=== PATIENT | male | born 1945 | race Caucasian/White ===

== ENCOUNTER 2019-05-20 19:56 | Inpatient (IN) | payer MEDICARE ==
[~2019-05-20] VITALS: Ht 170.2 cm; Wt 71.2 kg
--- OUTSIDE RECORDS SUMMARY | 2019-05-20 20:00 | XMS REPORT ---
[facility] Address Unknown Phone Unavailable Care Team Providers Care Crisis Mental Health Therapist Name Role Phone Unavailable Unavailable Payers Payer Name Policy Type Policy Number Effective Date Expiration Date Problems This patient has no known problems. Allergies, Adverse Reactions, Alerts Allergy Name Allergy Type Status Severity Reaction(s) Onset Date Inactive Date Treating Clinician Comments sulfacetamide DA Active U 2019-05-13 00:00:00 Not Converted 192. See Text. DA Active U 2019-05-13 00:00:00 No Known Contrast Allergies DA Active U 2005-03-09 00:00:00 No Known Food Allergies DA Active U 2005-03-09 00:00:00 No Known Other Allergies DA Active U 2005-03-09 00:00:00 SULFA DRUGS DA Active U 2005-03-09 00:00:00 sulfacetamide DA Active U 2005-03-07 00:00:00 Not Converted 192. See Text. DA Active U 2005-03-07 00:00:00 Medications This patient has no known medications. Results Test Description Test Time Test Comments Text Results Atomic Results Result Comments CBC W/MANUAL DIFF 2019-05-19 22:45:00 WHITE BLOOD CELL (test code=WBC) 8.7 K/mm3 4.5-12.5 RED BLOOD CELL (test code=RBC) 3.49 mill/mm3 4.0-5.8 HEMOGLOBIN (test code=HGB) 10.9 gram/dL 13.0-17.5 HEMATOCRIT (test code=HCT) 32.5 % 42.0-52.0 MEAN CELL VOLUME (test code=MCV) 93.1 fL 80-98 MEAN CELL HGB (test code=MCH) 31.2 picogram 27.0-33.0 MEAN CELL HGB CONCETRATION (test code=MCHC) 33.5 gram/dL 33.0-36.0 RED CELL DISTRIBUTION WIDTH (test code=RDW) 15.0 % 11.6-16.2 RED CELL DISTRIBUTION WIDTH SD (test code=RDW-SD) 51.4 fL 37.0-51.0 PLATELET COUNT (test code=PLT) 337 K/mm3 150-450 MEAN PLATELET VOLUME (test code=MPV) 9.4 fL 6.7-11.0 IMMATURE GRANULOCYTE % (test code=IG%) 11.8 % 0.0-5.0 "The appearance of immature granulocytes (myelocytes,pro-myelocytes, meta-myelocytes) in the peripheral blood ofnon- individuals can indicate a response toinfection, inflammation, or other stimulus to the bonemarrow" NUCLEATED RBC % (test code=NRBC%) 0.3 % 0-0 NEUTROPHIL # (test code=NT#) 5.24 K/mm3 1.8-7.7 IMMATURE GRANULOCYTE # (test code=IG#) 1.02 x10 3/uL 0-0.03 LYMPHOCYTE # (test code=LY#) 1.37 K/mm3 1.0-5.0 MONOCYTE # (test code=MO#) 0.76 K/mm3 0-0.8 EOSINOPHIL # (test code=EO#) 0.20 K/mm3 0.0-0.5 BASOPHIL # (test code=BA#) 0.09 K/mm3 0.0-0.2 NUCLEATED RBC # (test code=NRBC#) 0.03 K/mm3 0.0-0.1 MANUAL DIFF REQUIRED (test code=MDIFF) YES STAIN ACCEPTABILITY (test code=STN ACCEPTABLE) STAIN ACCEPTABLE TOTAL CELLS COUNTED (test code=TCC) 115 #CELLS SEGMENTED NEUTROPHILS (test code=SEG) 62.6 % 39-69 BAND NEUTROPHIL (test code=BAND) 5.2 % 0-10 LYMPHOCYTE (test code=LYMPH) 10.4 % 25-55 REACTIVE LYMPH (test code=RELYMPH) 0 % MONOCYTE (test code=MON) 9.6 % 0-10 EOSINOPHIL (test code=EOS) 4.4 % 0.0-5.0 BASOPHIL (test code=BASO) 0 % 0-1.0 METAMYELOCYTE (test code=META) 0.9 % 0-0 MYELOCYTE (test code=MYELO) 2.6 % 0.0-0.0 PROMYELOCYTE (test code=PROM) 0 % 0-0 MORPHOLOGY COMMENT (test code=MOC) NORMAL PLATELET ESTIMATE (test code=PLTEST) ADEQUATE PLATELET MORPHOLOGY (test code=PLTMORPH) NORMAL IMMATURE FORMS (test code=IMMAT) 4.3 % 0-0 PATHOLOGISTS [id number] 22:45:00* Test Item Value Reference Range Comments PATHOLOGISTS FINDINGS (test code=PATH) PATH NOTES NORMAL WBC WITH MILD TOXIC GRANULATION Reviewed by Dr Jesús Santizo CBC W/MANUAL [id number] 06:23:00* Test Item Value Reference Range Comments WHITE BLOOD CELL (test code=WBC) 8.7 K/mm3 4.5-12.5 RED BLOOD CELL (test code=RBC) 3.49 mill/mm3 4.0-5.8 HEMOGLOBIN (test code=HGB) 10.9 gram/dL 13.0-17.5 HEMATOCRIT (test code=HCT) 32.5 % 42.0-52.0 MEAN CELL VOLUME (test code=MCV) 93.1 fL 80-98 MEAN CELL HGB (test code=MCH) 31.2 picogram 27.0-33.0 MEAN CELL HGB CONCETRATION (test code=MCHC) 33.5 gram/dL 33.0-36.0 RED CELL DISTRIBUTION WIDTH (test code=RDW) 15.0 % 11.6-16.2 RED CELL DISTRIBUTION WIDTH SD (test code=RDW-SD) 51.4 fL 37.0-51.0 PLATELET COUNT (test code=PLT) 337 K/mm3 150-450 MEAN PLATELET VOLUME (test code=MPV) 9.4 fL 6.7-11.0 IMMATURE GRANULOCYTE % (test code=IG%) 11.8 % 0.0-5.0 "The appearance of immature granulocytes (myelocytes,pro-myelocytes, meta-myelocytes) in the peripheral blood ofnon- individuals can indicate a response toinfection, inflammation, or other stimulus to the bonemarrow" NUCLEATED RBC % (test code=NRBC%) 0.3 % 0-0 NEUTROPHIL # (test code=NT#) 5.24 K/mm3 1.8-7.7 IMMATURE GRANULOCYTE # (test code=IG#) 1.02 x10 3/uL 0-0.03 LYMPHOCYTE # (test code=LY#) 1.37 K/mm3 1.0-5.0 MONOCYTE # (test code=MO#) 0.76 K/mm3 0-0.8 EOSINOPHIL # (test code=EO#) 0.20 K/mm3 0.0-0.5 BASOPHIL # (test code=BA#) 0.09 K/mm3 0.0-0.2 NUCLEATED RBC # (test code=NRBC#) 0.03 K/mm3 0.0-0.1 MANUAL DIFF REQUIRED (test code=MDIFF) YES STAIN ACCEPTABILITY (test code=STN ACCEPTABLE) STAIN ACCEPTABLE TOTAL CELLS COUNTED (test code=TCC) 115 #CELLS SEGMENTED NEUTROPHILS (test code=SEG) 62.6 % 39-69 BAND NEUTROPHIL (test code=BAND) 5.2 % 0-10 LYMPHOCYTE (test code=LYMPH) 10.4 % 25-55 REACTIVE LYMPH (test code=RELYMPH) 0 % MONOCYTE (test code=MON) 9.6 % 0-10 EOSINOPHIL (test code=EOS) 4.4 % 0.0-5.0 BASOPHIL (test code=BASO) 0 % 0-1.0 METAMYELOCYTE (test code=META) 0.9 % 0-0 MYELOCYTE (test code=MYELO) 2.6 % 0.0-0.0 PROMYELOCYTE (test code=PROM) 0 % 0-0 MORPHOLOGY COMMENT (test code=MOC) NORMAL PLATELET ESTIMATE (test code=PLTEST) ADEQUATE PLATELET MORPHOLOGY (test code=PLTMORPH) NORMAL IMMATURE FORMS (test code=IMMAT) 4.3 % 0-0 BASIC METABOLIC [id number] 06:16:00* Test Item Value Reference Range Comments SODIUM (test code=NA) 135 mmol/L 136-145 POTASSIUM (test code=K) 3.5 mmol/L 3.5-5.1 CHLORIDE (test code=CL) 104.0 mmol/L 98-107 CARBON DIOXIDE (test code=CO2) 19.0 mmol/L 21-32 ANION GAP (test code=GAP) 15.5 10-20 GLUCOSE (test code=GLU) 84 mg/dL 74-106 BLOOD UREA NITROGEN (test code=BUN) 12 mg/dL 7-18 GLOMERULAR FILTRATION RATE (test code=GFR) > 60 mL/min >=60 Estimated GFR by using Modified MDRD formula.Chronic kidney disease is defined as either kidney damageor GFR <60 mL/min/1.73 m2 for >3 months. CREATININE (test code=CREAT) 0.50 mg/dL 0.7-1.3 BUN/CREATININE RATIO (test code=BUN/CREA) 24.0 10-20 CALCIUM (test code=CA) 8.1 mg/dL 8.5-10.1 HEPATIC FUNCTION [id number] 06:16:00* Test Item Value Reference Range Comments TOTAL PROTEIN (test code=PROT) 6.0 gram/dL 6.4-8.2 ALBUMIN (test code=ALB) 2.0 g/dL 3.4-5.0 GLOBULIN (test code=GLOB) 4.0 gram/dL 2.7-4.2 ALBUMIN/GLOBULIN RATIO (test code=A/G) 0.5 0.75-1.50 BILIRUBIN TOTAL (test code=BILT) 0.80 mg/dL 0.0-1.0 BILIRUBIN DIRECT (test code=BILD) 0.37 mg/dL 0.0-0.20 SGOT/AST (test code=AST) 43 IUnit/L 15-37 SGPT/ALT (test code=ALT) 18 IUnit/L 12-78 ALKALINE PHOSPHATASE TOTAL (test code=ALKP) 223 IUnit/L 45-117 Note change in reference range due to change in reagent. [id number] 06:16:00* Test Item Value Reference Range Comments PHOSPHORUS (test code=PHOS) 2.1 mg/dL 2.5-4.9 [id number] 06:16:00* Test Item Value Reference Range Comments MAGNESIUM (test code=MAG) 1.9 mg/dL 1.8-2.4 CALCIUM [id number] 06:16:00* Test Item Value Reference Range Comments CALCIUM IONIZED (test code=ASHLEE) 1.18 mmol/L 1.12-1.32 B-TYPE NATRIURETIC [id number] 06:11:00* Test Item Value Reference Range Comments B-TYPE NATRIURETIC PEPTIDE (test code=BNP) 172.25 pgram/mL 0-100 BASIC METABOLIC [id number] 06:05:00* Test Item Value Reference Range Comments SODIUM (test code=NA) 135 mmol/L 136-145 POTASSIUM (test code=K) 3.5 mmol/L 3.5-5.1 CHLORIDE (test code=CL) 104.0 mmol/L 98-107 CARBON DIOXIDE (test code=CO2) mmol/L 21-32 ANION GAP (test code=GAP) 10-20 GLUCOSE (test code=GLU) mg/dL 74-106 BLOOD UREA NITROGEN (test code=BUN) mg/dL 7-18 GLOMERULAR FILTRATION RATE (test code=GFR) mL/min >=60 CREATININE (test code=CREAT) mg/dL 0.7-1.3 BUN/CREATININE RATIO (test code=BUN/CREA) 10-20 CALCIUM (test code=CA) mg/dL 8.5-10.1 HEPATIC FUNCTION [id number] 06:05:00* Test Item Value Reference Range Comments TOTAL PROTEIN (test code=PROT) gram/dL 6.4-8.2 ALBUMIN (test code=ALB) g/dL 3.4-5.0 GLOBULIN (test code=GLOB) gram/dL 2.7-4.2 ALBUMIN/GLOBULIN RATIO (test code=A/G) 0.75-1.50 BILIRUBIN TOTAL (test code=BILT) mg/dL 0.0-1.0 BILIRUBIN DIRECT (test code=BILD) mg/dL 0.0-0.20 SGOT/AST (test code=AST) IUnit/L 15-37 SGPT/ALT (test code=ALT) IUnit/L 12-78 ALKALINE PHOSPHATASE TOTAL (test code=ALKP) IUnit/L 45-117 [id number] 06:05:00* Test Item Value Reference Range Comments PHOSPHORUS (test code=PHOS) mg/dL 2.5-4.9 [id number] 06:05:00* Test Item Value Reference Range Comments MAGNESIUM (test code=MAG) mg/dL 1.8-2.4 CALCIUM [id number] 06:05:00* Test Item Value Reference Range Comments CALCIUM IONIZED (test code=ASHLEE) 1.18 mmol/L 1.12-1.32 BASIC METABOLIC [id number] 05:58:00* Test Item Value Reference Range Comments SODIUM (test code=NA) mmol/L 136-145 POTASSIUM (test code=K) mmol/L 3.5-5.1 CHLORIDE (test code=CL) mmol/L 98-107 CARBON DIOXIDE (test code=CO2) mmol/L 21-32 ANION GAP (test code=GAP) 10-20 GLUCOSE (test code=GLU) mg/dL 74-106 BLOOD UREA NITROGEN (test code=BUN) mg/dL 7-18 GLOMERULAR FILTRATION RATE (test code=GFR) mL/min >=60 CREATININE (test code=CREAT) mg/dL 0.7-1.3 BUN/CREATININE RATIO (test code=BUN/CREA) 10-20 CALCIUM (test code=CA) mg/dL 8.5-10.1 HEPATIC FUNCTION [id number] 05:58:00* Test Item Value Reference Range Comments TOTAL PROTEIN (test code=PROT) gram/dL 6.4-8.2 ALBUMIN (test code=ALB) g/dL 3.4-5.0 GLOBULIN (test code=GLOB) gram/dL 2.7-4.2 ALBUMIN/GLOBULIN RATIO (test code=A/G) 0.75-1.50 BILIRUBIN TOTAL (test code=BILT) mg/dL 0.0-1.0 BILIRUBIN DIRECT (test code=BILD) mg/dL 0.0-0.20 SGOT/AST (test code=AST) IUnit/L 15-37 SGPT/ALT (test code=ALT) IUnit/L 12-78 ALKALINE PHOSPHATASE TOTAL (test code=ALKP) IUnit/L 45-117 [id number] 05:58:00* Test Item Value Reference Range Comments PHOSPHORUS (test code=PHOS) mg/dL 2.5-4.9 [id number] 05:58:00* Test Item Value Reference Range Comments MAGNESIUM (test code=MAG) mg/dL 1.8-2.4 CALCIUM [id number] 05:58:00* Test Item Value Reference Range Comments CALCIUM IONIZED (test code=ASHLEE) 1.18 mmol/L 1.12-1.32 CBC W/MANUAL [id number] 05:41:00* Test Item Value Reference Range Comments WHITE BLOOD CELL (test code=WBC) 8.7 K/mm3 4.5-12.5 RED BLOOD CELL (test code=RBC) 3.49 mill/mm3 4.0-5.8 HEMOGLOBIN (test code=HGB) 10.9 gram/dL 13.0-17.5 HEMATOCRIT (test code=HCT) 32.5 % 42.0-52.0 MEAN CELL VOLUME (test code=MCV) 93.1 fL 80-98 MEAN CELL HGB (test code=MCH) 31.2 picogram 27.0-33.0 MEAN CELL HGB CONCETRATION (test code=MCHC) 33.5 gram/dL 33.0-36.0 RED CELL DISTRIBUTION WIDTH (test code=RDW) 15.0 % 11.6-16.2 RED CELL DISTRIBUTION WIDTH SD (test code=RDW-SD) 51.4 fL 37.0-51.0 PLATELET COUNT (test code=PLT) 337 K/mm3 150-450 MEAN PLATELET VOLUME (test code=MPV) 9.4 fL 6.7-11.0 IMMATURE GRANULOCYTE % (test code=IG%) 11.8 % 0.0-5.0 "The appearance of immature granulocytes (myelocytes,pro-myelocytes, meta-myelocytes) in the peripheral blood ofnon- individuals can indicate a response toinfection, inflammation, or other stimulus to the bonemarrow" NUCLEATED RBC % (test code=NRBC%) 0.3 % 0-0 NEUTROPHIL # (test code=NT#) 5.24 K/mm3 1.8-7.7 IMMATURE GRANULOCYTE # (test code=IG#) 1.02 x10 3/uL 0-0.03 LYMPHOCYTE # (test code=LY#) 1.37 K/mm3 1.0-5.0 MONOCYTE # (test code=MO#) 0.76 K/mm3 0-0.8 EOSINOPHIL # (test code=EO#) 0.20 K/mm3 0.0-0.5 BASOPHIL # (test code=BA#) 0.09 K/mm3 0.0-0.2 NUCLEATED RBC # (test code=NRBC#) 0.03 K/mm3 0.0-0.1 MANUAL DIFF REQUIRED (test code=MDIFF) YES STAIN ACCEPTABILITY (test code=STN ACCEPTABLE) TOTAL CELLS COUNTED (test code=TCC) #CELLS SEGMENTED NEUTROPHILS (test code=SEG) % 39-69 LYMPHOCYTE (test code=LYMPH) % 25-55 MONOCYTE (test code=MON) % 0-10 EOSINOPHIL (test code=EOS) % 0.0-5.0 CABOT RINGS (test code=CAB) MORPHOLOGY COMMENT (test code=MOC) PLATELET ESTIMATE (test code=PLTEST) PLATELET MORPHOLOGY (test code=PLTMORPH) CBC W/MANUAL [id number] 05:41:00* Test Item Value Reference Range Comments WHITE BLOOD CELL (test code=WBC) 8.7 K/mm3 4.5-12.5 RED BLOOD CELL (test code=RBC) 3.49 mill/mm3 4.0-5.8 HEMOGLOBIN (test code=HGB) 10.9 gram/dL 13.0-17.5 HEMATOCRIT (test code=HCT) 32.5 % 42.0-52.0 MEAN CELL VOLUME (test code=MCV) 93.1 fL 80-98 MEAN CELL HGB (test code=MCH) 31.2 picogram 27.0-33.0 MEAN CELL HGB CONCETRATION (test code=MCHC) 33.5 gram/dL 33.0-36.0 RED CELL DISTRIBUTION WIDTH (test code=RDW) 15.0 % 11.6-16.2 RED CELL DISTRIBUTION WIDTH SD (test code=RDW-SD) 51.4 fL 37.0-51.0 PLATELET COUNT (test code=PLT) 337 K/mm3 150-450 MEAN PLATELET VOLUME (test code=MPV) 9.4 fL 6.7-11.0 IMMATURE GRANULOCYTE % (test code=IG%) 11.8 % 0.0-5.0 "The appearance of immature granulocytes (myelocytes,pro-myelocytes, meta-myelocytes) in the peripheral blood ofnon- individuals can indicate a response toinfection, inflammation, or other stimulus to the bonemarrow" NUCLEATED RBC % (test code=NRBC%) 0.3 % 0-0 NEUTROPHIL # (test code=NT#) 5.24 K/mm3 1.8-7.7 IMMATURE GRANULOCYTE # (test code=IG#) 1.02 x10 3/uL 0-0.03 LYMPHOCYTE # (test code=LY#) 1.37 K/mm3 1.0-5.0 MONOCYTE # (test code=MO#) 0.76 K/mm3 0-0.8 EOSINOPHIL # (test code=EO#) 0.20 K/mm3 0.0-0.5 BASOPHIL # (test code=BA#) 0.09 K/mm3 0.0-0.2 NUCLEATED RBC # (test code=NRBC#) 0.03 K/mm3 0.0-0.1 MANUAL DIFF REQUIRED (test code=MDIFF) YES STAIN ACCEPTABILITY (test code=STN ACCEPTABLE) TOTAL CELLS COUNTED (test code=TCC) #CELLS SEGMENTED NEUTROPHILS (test code=SEG) % 39-69 LYMPHOCYTE (test code=LYMPH) % 25-55 MONOCYTE (test code=MON) % 0-10 EOSINOPHIL (test code=EOS) % 0.0-5.0 CABOT RINGS (test code=CAB) MORPHOLOGY COMMENT (test code=MOC) PLATELET ESTIMATE (test code=PLTEST) PLATELET MORPHOLOGY (test code=PLTMORPH) CBC W/MANUAL [id number] 05:41:00* Test Item Value Reference Range Comments WHITE BLOOD CELL (test code=WBC) 8.7 K/mm3 4.5-12.5 RED BLOOD CELL (test code=RBC) 3.49 mill/mm3 4.0-5.8 HEMOGLOBIN (test code=HGB) 10.9 gram/dL 13.0-17.5 HEMATOCRIT (test code=HCT) 32.5 % 42.0-52.0 MEAN CELL VOLUME (test code=MCV) 93.1 fL 80-98 MEAN CELL HGB (test code=MCH) 31.2 picogram 27.0-33.0 MEAN CELL HGB CONCETRATION (test code=MCHC) 33.5 gram/dL 33.0-36.0 RED CELL DISTRIBUTION WIDTH (test code=RDW) 15.0 % 11.6-16.2 RED CELL DISTRIBUTION WIDTH SD (test code=RDW-SD) 51.4 fL 37.0-51.0 PLATELET COUNT (test code=PLT) 337 K/mm3 150-450 MEAN PLATELET VOLUME (test code=MPV) 9.4 fL 6.7-11.0 IMMATURE GRANULOCYTE % (test code=IG%) 11.8 % 0.0-5.0 "The appearance of immature granulocytes (myelocytes,pro-myelocytes, meta-myelocytes) in the peripheral blood ofnon- individuals can indicate a response toinfection, inflammation, or other stimulus to the bonemarrow" NUCLEATED RBC % (test code=NRBC%) 0.3 % 0-0 NEUTROPHIL # (test code=NT#) 5.24 K/mm3 1.8-7.7 IMMATURE GRANULOCYTE # (test code=IG#) 1.02 x10 3/uL 0-0.03 LYMPHOCYTE # (test code=LY#) 1.37 K/mm3 1.0-5.0 MONOCYTE # (test code=MO#) 0.76 K/mm3 0-0.8 EOSINOPHIL # (test code=EO#) 0.20 K/mm3 0.0-0.5 BASOPHIL # (test code=BA#) 0.09 K/mm3 0.0-0.2 NUCLEATED RBC # (test code=NRBC#) 0.03 K/mm3 0.0-0.1 MANUAL DIFF REQUIRED (test code=MDIFF) YES STAIN ACCEPTABILITY (test code=STN ACCEPTABLE) TOTAL CELLS COUNTED (test code=TCC) #CELLS SEGMENTED NEUTROPHILS (test code=SEG) % 39-69 LYMPHOCYTE (test code=LYMPH) % 25-55 MONOCYTE (test code=MON) % 0-10 EOSINOPHIL (test code=EOS) % 0.0-5.0 MORPHOLOGY COMMENT (test code=MOC) PLATELET ESTIMATE (test code=PLTEST) PLATELET MORPHOLOGY (test code=PLTMORPH) CBC W/MANUAL [id number] 05:41:00* Test Item Value Reference Range Comments WHITE BLOOD CELL (test code=WBC) 8.7 K/mm3 4.5-12.5 RED BLOOD CELL (test code=RBC) 3.49 mill/mm3 4.0-5.8 HEMOGLOBIN (test code=HGB) 10.9 gram/dL 13.0-17.5 HEMATOCRIT (test code=HCT) 32.5 % 42.0-52.0 MEAN CELL VOLUME (test code=MCV) 93.1 fL 80-98 MEAN CELL HGB (test code=MCH) 31.2 picogram 27.0-33.0 MEAN CELL HGB CONCETRATION (test code=MCHC) 33.5 gram/dL 33.0-36.0 RED CELL DISTRIBUTION WIDTH (test code=RDW) 15.0 % 11.6-16.2 RED CELL DISTRIBUTION WIDTH SD (test code=RDW-SD) 51.4 fL 37.0-51.0 PLATELET COUNT (test code=PLT) 337 K/mm3 150-450 MEAN PLATELET VOLUME (test code=MPV) 9.4 fL 6.7-11.0 IMMATURE GRANULOCYTE % (test code=IG%) 11.8 % 0.0-5.0 "The appearance of immature granulocytes (myelocytes,pro-myelocytes, meta-myelocytes) in the peripheral blood ofnon- individuals can indicate a response toinfection, inflammation, or other stimulus to the bonemarrow" NUCLEATED RBC % (test code=NRBC%) 0.3 % 0-0 NEUTROPHIL # (test code=NT#) 5.24 K/mm3 1.8-7.7 IMMATURE GRANULOCYTE # (test code=IG#) 1.02 x10 3/uL 0-0.03 LYMPHOCYTE # (test code=LY#) 1.37 K/mm3 1.0-5.0 MONOCYTE # (test code=MO#) 0.76 K/mm3 0-0.8 EOSINOPHIL # (test code=EO#) 0.20 K/mm3 0.0-0.5 BASOPHIL # (test code=BA#) 0.09 K/mm3 0.0-0.2 NUCLEATED RBC # (test code=NRBC#) 0.03 K/mm3 0.0-0.1 MANUAL DIFF REQUIRED (test code=MDIFF) YES STAIN ACCEPTABILITY (test code=STN ACCEPTABLE) TOTAL CELLS COUNTED (test code=TCC) #CELLS SEGMENTED NEUTROPHILS (test code=SEG) % 39-69 LYMPHOCYTE (test code=LYMPH) % 25-55 MONOCYTE (test code=MON) % 0-10 MORPHOLOGY COMMENT (test code=MOC) PLATELET ESTIMATE (test code=PLTEST) PLATELET MORPHOLOGY (test code=PLTMORPH) CBC W/MANUAL [id number] 05:41:00* Test Item Value Reference Range Comments WHITE BLOOD CELL (test code=WBC) 8.7 K/mm3 4.5-12.5 RED BLOOD CELL (test code=RBC) 3.49 mill/mm3 4.0-5.8 HEMOGLOBIN (test code=HGB) 10.9 gram/dL 13.0-17.5 HEMATOCRIT (test code=HCT) 32.5 % 42.0-52.0 MEAN CELL VOLUME (test code=MCV) 93.1 fL 80-98 MEAN CELL HGB (test code=MCH) 31.2 picogram 27.0-33.0 MEAN CELL HGB CONCETRATION (test code=MCHC) 33.5 gram/dL 33.0-36.0 RED CELL DISTRIBUTION WIDTH (test code=RDW) 15.0 % 11.6-16.2 RED CELL DISTRIBUTION WIDTH SD (test code=RDW-SD) 51.4 fL 37.0-51.0 PLATELET COUNT (test code=PLT) 337 K/mm3 150-450 MEAN PLATELET VOLUME (test code=MPV) 9.4 fL 6.7-11.0 IMMATURE GRANULOCYTE % (test code=IG%) 11.8 % 0.0-5.0 "The appearance of immature granulocytes (myelocytes,pro-myelocytes, meta-myelocytes) in the peripheral blood ofnon- individuals can indicate a response toinfection, inflammation, or other stimulus to the bonemarrow" NUCLEATED RBC % (test code=NRBC%) 0.3 % 0-0 NEUTROPHIL # (test code=NT#) 5.24 K/mm3 1.8-7.7 IMMATURE GRANULOCYTE # (test code=IG#) 1.02 x10 3/uL 0-0.03 LYMPHOCYTE # (test code=LY#) 1.37 K/mm3 1.0-5.0 MONOCYTE # (test code=MO#) 0.76 K/mm3 0-0.8 EOSINOPHIL # (test code=EO#) 0.20 K/mm3 0.0-0.5 BASOPHIL # (test code=BA#) 0.09 K/mm3 0.0-0.2 NUCLEATED RBC # (test code=NRBC#) 0.03 K/mm3 0.0-0.1 MANUAL DIFF REQUIRED (test code=MDIFF) YES STAIN ACCEPTABILITY (test code=STN ACCEPTABLE) TOTAL CELLS COUNTED (test code=TCC) #CELLS SEGMENTED NEUTROPHILS (test code=SEG) % 39-69 LYMPHOCYTE (test code=LYMPH) % 25-55 MONOCYTE (test code=MON) % 0-10 EOSINOPHIL (test code=EOS) % 0.0-5.0 CABOT RINGS (test code=CAB) MORPHOLOGY COMMENT (test code=MOC) PLATELET ESTIMATE (test code=PLTEST) PLATELET MORPHOLOGY (test code=PLTMORPH) - XR ABDOMEN AP 1 [id number] 19:33:00 FAX: Jamir Barnhart Stetson: B St: ADM FAX: Jian Harris MD [phone] Name: BOO MERRITT [facility] : 1945 Age/S: 73/M [address] [facility] Unit #: [id number] Loc: [address] [address] Phys: Jamir Colvin MD Acct: [id number] Dis Date: Status: ADM IN PHONE #: [phone] Exam Date: 05/18/2019 1855 FAX #: [phone] Reason: abdominal pain , constipation , recent divertic EXAMS: CPT CODE: [id number] XR ABDOMEN AP 1 V [id number] HISTORY: abdominal pain , constipation , recent diverticulitis TECHNIQUE: AP abdomen x-ray COMPARISON: CT of the abdomen and pelvis May 12, 2019 FINDINGS: Nonobstructive bowel gas pattern. No significant stool burden. No intra-abdominal mass effect. No abnormal calcifications are observed. Visualized osseous structures are intact. Visualized thorax is within normal limits. IMPRESSION: No radiographic evidence of acute intra-abdominal process. Location: [facility] at 1933 Reported and signed by: Sean Islsa MD CC: Jamir Colvin MD; Jian Rodríguez Technologist: CLAUS RICHARDSON, RT(R); ... Trnscrd Date/Time/By: 05/18/2019 (1932) : By: [email or web address] Orig Print D/T: S: 05/18/2019 (1936) PAGE 1 Signed Report CBC W/MANUAL [id number] 05:25:00* Test Item Value Reference Range Comments WHITE BLOOD CELL (test code=WBC) 8.6 K/mm3 4.5-12.5 RED BLOOD CELL (test code=RBC) 3.85 mill/mm3 4.0-5.8 HEMOGLOBIN (test code=HGB) 12.0 gram/dL 13.0-17.5 HEMATOCRIT (test code=HCT) 35.7 % 42.0-52.0 MEAN CELL VOLUME (test code=MCV) 92.7 fL 80-98 MEAN CELL HGB (test code=MCH) 31.2 picogram 27.0-33.0 MEAN CELL HGB CONCETRATION (test code=MCHC) 33.6 gram/dL 33.0-36.0 RED CELL DISTRIBUTION WIDTH (test code=RDW) 14.4 % 11.6-16.2 RED CELL DISTRIBUTION WIDTH SD (test code=RDW-SD) 49.1 fL 37.0-51.0 PLATELET COUNT (test code=PLT) 332 K/mm3 150-450 RESULT VERIFIED BY REPEAT ANALYSIS MEAN PLATELET VOLUME (test code=MPV) 8.9 fL 6.7-11.0 IMMATURE GRANULOCYTE % (test code=IG%) 9.3 % 0.0-5.0 "The appearance of immature granulocytes (myelocytes,pro-myelocytes, meta-myelocytes) in the peripheral blood ofnon- individuals can indicate a response toinfection, inflammation, or other stimulus to the bonemarrow" NUCLEATED RBC % (test code=NRBC%) 0.0 % 0-0 NEUTROPHIL # (test code=NT#) 5.61 K/mm3 1.8-7.7 IMMATURE GRANULOCYTE # (test code=IG#) 0.80 x10 3/uL 0-0.03 LYMPHOCYTE # (test code=LY#) 1.07 K/mm3 1.0-5.0 MONOCYTE # (test code=MO#) 0.69 K/mm3 0-0.8 EOSINOPHIL # (test code=EO#) 0.37 K/mm3 0.0-0.5 BASOPHIL # (test code=BA#) 0.03 K/mm3 0.0-0.2 NUCLEATED RBC # (test code=NRBC#) 0.00 K/mm3 0.0-0.1 MANUAL DIFF REQUIRED (test code=MDIFF) YES STAIN ACCEPTABILITY (test code=STN ACCEPTABLE) STAIN ACCEPTABLE TOTAL CELLS COUNTED (test code=TCC) 115 #CELLS SEGMENTED NEUTROPHILS (test code=SEG) 72.2 % 39-69 BAND NEUTROPHIL (test code=BAND) 0 % 0-10 LYMPHOCYTE (test code=LYMPH) 10.4 % 25-55 REACTIVE LYMPH (test code=RELYMPH) 0 % MONOCYTE (test code=MON) 7.8 % 0-10 EOSINOPHIL (test code=EOS) 7.0 % 0.0-5.0 BASOPHIL (test code=BASO) 0 % 0-1.0 METAMYELOCYTE (test code=META) 0.9 % 0-0 MYELOCYTE (test code=MYELO) 0 % 0.0-0.0 PROMYELOCYTE (test code=PROM) 0 % 0-0 PLASMA CELL (test code=ALISSA) 1.7 0.0-0.0 POLYCHROMASIA (test code=POLC) 1+ ANISOCYTOSIS (test code=ANISO) 1+ PLATELET ESTIMATE (test code=PLTEST) ADEQUATE PLATELET MORPHOLOGY (test code=PLTMORPH) NORMAL IMMATURE FORMS (test code=IMMAT) 0 % 0-0 BASIC METABOLIC [id number] 04:43:00* Test Item Value Reference Range Comments SODIUM (test code=NA) 135 mmol/L 136-145 POTASSIUM (test code=K) 3.3 mmol/L 3.5-5.1 CHLORIDE (test code=CL) 102.0 mmol/L 98-107 CARBON DIOXIDE (test code=CO2) 22.0 mmol/L 21-32 ANION GAP (test code=GAP) 14.3 10-20 GLUCOSE (test code=GLU) 81 mg/dL 74-106 BLOOD UREA NITROGEN (test code=BUN) 14 mg/dL 7-18 GLOMERULAR FILTRATION RATE (test code=GFR) > 60 mL/min >=60 Estimated GFR by using Modified MDRD formula.Chronic kidney disease is defined as either kidney damageor GFR <60 mL/min/1.73 m2 for >3 months. CREATININE (test code=CREAT) 0.60 mg/dL 0.7-1.3 BUN/CREATININE RATIO (test code=BUN/CREA) 23.3 10-20 CALCIUM (test code=CA) 8.3 mg/dL 8.5-10.1 HEPATIC FUNCTION [id number] 04:43:00* Test Item Value Reference Range Comments TOTAL PROTEIN (test code=PROT) 6.4 gram/dL 6.4-8.2 ALBUMIN (test code=ALB) 2.1 g/dL 3.4-5.0 GLOBULIN (test code=GLOB) 4.3 gram/dL 2.7-4.2 ALBUMIN/GLOBULIN RATIO (test code=A/G) 0.5 0.75-1.50 BILIRUBIN TOTAL (test code=BILT) 1.10 mg/dL 0.0-1.0 BILIRUBIN DIRECT (test code=BILD) 0.80 mg/dL 0.0-0.20 SGOT/AST (test code=AST) 43 IUnit/L 15-37 SGPT/ALT (test code=ALT) 19 IUnit/L 12-78 ALKALINE PHOSPHATASE TOTAL (test code=ALKP) 180 IUnit/L 45-117 Note change in reference range due to change in reagent. [id number] 04:43:00* Test Item Value Reference Range Comments PHOSPHORUS (test code=PHOS) 1.7 mg/dL 2.5-4.9 [id number] 04:43:00* Test Item Value Reference Range Comments MAGNESIUM (test code=MAG) 1.8 mg/dL 1.8-2.4 BASIC METABOLIC [id number] 04:36:00* Test Item Value Reference Range Comments SODIUM (test code=NA) 135 mmol/L 136-145 POTASSIUM (test code=K) 3.3 mmol/L 3.5-5.1 CHLORIDE (test code=CL) 102.0 mmol/L 98-107 CARBON DIOXIDE (test code=CO2) mmol/L 21-32 ANION GAP (test code=GAP) 10-20 GLUCOSE (test code=GLU) mg/dL 74-106 BLOOD UREA NITROGEN (test code=BUN) mg/dL 7-18 GLOMERULAR FILTRATION RATE (test code=GFR) mL/min >=60 CREATININE (test code=CREAT) mg/dL 0.7-1.3 BUN/CREATININE RATIO (test code=BUN/CREA) 10-20 CALCIUM (test code=CA) mg/dL 8.5-10.1 HEPATIC FUNCTION [id number] 04:36:00* Test Item Value Reference Range Comments TOTAL PROTEIN (test code=PROT) gram/dL 6.4-8.2 ALBUMIN (test code=ALB) g/dL 3.4-5.0 GLOBULIN (test code=GLOB) gram/dL 2.7-4.2 ALBUMIN/GLOBULIN RATIO (test code=A/G) 0.75-1.50 BILIRUBIN TOTAL (test code=BILT) mg/dL 0.0-1.0 BILIRUBIN DIRECT (test code=BILD) mg/dL 0.0-0.20 SGOT/AST (test code=AST) IUnit/L 15-37 SGPT/ALT (test code=ALT) IUnit/L 12-78 ALKALINE PHOSPHATASE TOTAL (test code=ALKP) IUnit/L 45-117 [id number] 04:36:00* Test Item Value Reference Range Comments PHOSPHORUS (test code=PHOS) mg/dL 2.5-4.9 [id number] 04:36:00* Test Item Value Reference Range Comments MAGNESIUM (test code=MAG) mg/dL 1.8-2.4 CBC W/MANUAL [id number] 04:27:00* Test Item Value Reference Range Comments WHITE BLOOD CELL (test code=WBC) 8.6 K/mm3 4.5-12.5 RED BLOOD CELL (test code=RBC) 3.85 mill/mm3 4.0-5.8 HEMOGLOBIN (test code=HGB) 12.0 gram/dL 13.0-17.5 HEMATOCRIT (test code=HCT) 35.7 % 42.0-52.0 MEAN CELL VOLUME (test code=MCV) 92.7 fL 80-98 MEAN CELL HGB (test code=MCH) 31.2 picogram 27.0-33.0 MEAN CELL HGB CONCETRATION (test code=MCHC) 33.6 gram/dL 33.0-36.0 RED CELL DISTRIBUTION WIDTH (test code=RDW) 14.4 % 11.6-16.2 RED CELL DISTRIBUTION WIDTH SD (test code=RDW-SD) 49.1 fL 37.0-51.0 PLATELET COUNT (test code=PLT) 332 K/mm3 150-450 RESULT VERIFIED BY REPEAT ANALYSIS MEAN PLATELET VOLUME (test code=MPV) 8.9 fL 6.7-11.0 IMMATURE GRANULOCYTE % (test code=IG%) 9.3 % 0.0-5.0 "The appearance of immature granulocytes (myelocytes,pro-myelocytes, meta-myelocytes) in the peripheral blood ofnon- individuals can indicate a response toinfection, inflammation, or other stimulus to the bonemarrow" NUCLEATED RBC % (test code=NRBC%) 0.0 % 0-0 NEUTROPHIL # (test code=NT#) 5.61 K/mm3 1.8-7.7 IMMATURE GRANULOCYTE # (test code=IG#) 0.80 x10 3/uL 0-0.03 LYMPHOCYTE # (test code=LY#) 1.07 K/mm3 1.0-5.0 MONOCYTE # (test code=MO#) 0.69 K/mm3 0-0.8 EOSINOPHIL # (test code=EO#) 0.37 K/mm3 0.0-0.5 BASOPHIL # (test code=BA#) 0.03 K/mm3 0.0-0.2 NUCLEATED RBC # (test code=NRBC#) 0.00 K/mm3 0.0-0.1 MANUAL DIFF REQUIRED (test code=MDIFF) YES STAIN ACCEPTABILITY (test code=STN ACCEPTABLE) TOTAL CELLS COUNTED (test code=TCC) #CELLS SEGMENTED NEUTROPHILS (test code=SEG) % 39-69 LYMPHOCYTE (test code=LYMPH) % 25-55 MONOCYTE (test code=MON) % 0-10 EOSINOPHIL (test code=EOS) % 0.0-5.0 CABOT RINGS (test code=CAB) MORPHOLOGY COMMENT (test code=MOC) PLATELET ESTIMATE (test code=PLTEST) PLATELET MORPHOLOGY (test code=PLTMORPH) CBC W/MANUAL [id number] 04:27:00* Test Item Value Reference Range Comments WHITE BLOOD CELL (test code=WBC) 8.6 K/mm3 4.5-12.5 RED BLOOD CELL (test code=RBC) 3.85 mill/mm3 4.0-5.8 HEMOGLOBIN (test code=HGB) 12.0 gram/dL 13.0-17.5 HEMATOCRIT (test code=HCT) 35.7 % 42.0-52.0 MEAN CELL VOLUME (test code=MCV) 92.7 fL 80-98 MEAN CELL HGB (test code=MCH) 31.2 picogram 27.0-33.0 MEAN CELL HGB CONCETRATION (test code=MCHC) 33.6 gram/dL 33.0-36.0 RED CELL DISTRIBUTION WIDTH (test code=RDW) 14.4 % 11.6-16.2 RED CELL DISTRIBUTION WIDTH SD (test code=RDW-SD) 49.1 fL 37.0-51.0 PLATELET COUNT (test code=PLT) 332 K/mm3 150-450 RESULT VERIFIED BY REPEAT ANALYSIS MEAN PLATELET VOLUME (test code=MPV) 8.9 fL 6.7-11.0 IMMATURE GRANULOCYTE % (test code=IG%) 9.3 % 0.0-5.0 "The appearance of immature granulocytes (myelocytes,pro-myelocytes, meta-myelocytes) in the peripheral blood ofnon- individuals can indicate a response toinfection, inflammation, or other stimulus to the bonemarrow" NUCLEATED RBC % (test code=NRBC%) 0.0 % 0-0 NEUTROPHIL # (test code=NT#) 5.61 K/mm3 1.8-7.7 IMMATURE GRANULOCYTE # (test code=IG#) 0.80 x10 3/uL 0-0.03 LYMPHOCYTE # (test code=LY#) 1.07 K/mm3 1.0-5.0 MONOCYTE # (test code=MO#) 0.69 K/mm3 0-0.8 EOSINOPHIL # (test code=EO#) 0.37 K/mm3 0.0-0.5 BASOPHIL # (test code=BA#) 0.03 K/mm3 0.0-0.2 NUCLEATED RBC # (test code=NRBC#) 0.00 K/mm3 0.0-0.1 MANUAL DIFF REQUIRED (test code=MDIFF) YES STAIN ACCEPTABILITY (test code=STN ACCEPTABLE) TOTAL CELLS COUNTED (test code=TCC) #CELLS SEGMENTED NEUTROPHILS (test code=SEG) % 39-69 LYMPHOCYTE (test code=LYMPH) % 25-55 MONOCYTE (test code=MON) % 0-10 EOSINOPHIL (test code=EOS) % 0.0-5.0 CABOT RINGS (test code=CAB) MORPHOLOGY COMMENT (test code=MOC) PLATELET ESTIMATE (test code=PLTEST) PLATELET MORPHOLOGY (test code=PLTMORPH) CBC W/MANUAL [id number] 04:27:00* Test Item Value Reference Range Comments WHITE BLOOD CELL (test code=WBC) 8.6 K/mm3 4.5-12.5 RED BLOOD CELL (test code=RBC) 3.85 mill/mm3 4.0-5.8 HEMOGLOBIN (test code=HGB) 12.0 gram/dL 13.0-17.5 HEMATOCRIT (test code=HCT) 35.7 % 42.0-52.0 MEAN CELL VOLUME (test code=MCV) 92.7 fL 80-98 MEAN CELL HGB (test code=MCH) 31.2 picogram 27.0-33.0 MEAN CELL HGB CONCETRATION (test code=MCHC) 33.6 gram/dL 33.0-36.0 RED CELL DISTRIBUTION WIDTH (test code=RDW) 14.4 % 11.6-16.2 RED CELL DISTRIBUTION WIDTH SD (test code=RDW-SD) 49.1 fL 37.0-51.0 PLATELET COUNT (test code=PLT) 332 K/mm3 150-450 RESULT VERIFIED BY REPEAT ANALYSIS MEAN PLATELET VOLUME (test code=MPV) 8.9 fL 6.7-11.0 IMMATURE GRANULOCYTE % (test code=IG%) 9.3 % 0.0-5.0 "The appearance of immature granulocytes (myelocytes,pro-myelocytes, meta-myelocytes) in the peripheral blood ofnon- individuals can indicate a response toinfection, inflammation, or other stimulus to the bonemarrow" NUCLEATED RBC % (test code=NRBC%) 0.0 % 0-0 NEUTROPHIL # (test code=NT#) 5.61 K/mm3 1.8-7.7 IMMATURE GRANULOCYTE # (test code=IG#) 0.80 x10 3/uL 0-0.03 LYMPHOCYTE # (test code=LY#) 1.07 K/mm3 1.0-5.0 MONOCYTE # (test code=MO#) 0.69 K/mm3 0-0.8 EOSINOPHIL # (test code=EO#) 0.37 K/mm3 0.0-0.5 BASOPHIL # (test code=BA#) 0.03 K/mm3 0.0-0.2 NUCLEATED RBC # (test code=NRBC#) 0.00 K/mm3 0.0-0.1 MANUAL DIFF REQUIRED (test code=MDIFF) YES STAIN ACCEPTABILITY (test code=STN ACCEPTABLE) TOTAL CELLS COUNTED (test code=TCC) #CELLS SEGMENTED NEUTROPHILS (test code=SEG) % 39-69 LYMPHOCYTE (test code=LYMPH) % 25-55 MONOCYTE (test code=MON) % 0-10 EOSINOPHIL (test code=EOS) % 0.0-5.0 MORPHOLOGY COMMENT (test code=MOC) PLATELET ESTIMATE (test code=PLTEST) PLATELET MORPHOLOGY (test code=PLTMORPH) CBC W/MANUAL [id number] 04:27:00* Test Item Value Reference Range Comments WHITE BLOOD CELL (test code=WBC) 8.6 K/mm3 4.5-12.5 RED BLOOD CELL (test code=RBC) 3.85 mill/mm3 4.0-5.8 HEMOGLOBIN (test code=HGB) 12.0 gram/dL 13.0-17.5 HEMATOCRIT (test code=HCT) 35.7 % 42.0-52.0 MEAN CELL VOLUME (test code=MCV) 92.7 fL 80-98 MEAN CELL HGB (test code=MCH) 31.2 picogram 27.0-33.0 MEAN CELL HGB CONCETRATION (test code=MCHC) 33.6 gram/dL 33.0-36.0 RED CELL DISTRIBUTION WIDTH (test code=RDW) 14.4 % 11.6-16.2 RED CELL DISTRIBUTION WIDTH SD (test code=RDW-SD) 49.1 fL 37.0-51.0 PLATELET COUNT (test code=PLT) 332 K/mm3 150-450 RESULT VERIFIED BY REPEAT ANALYSIS MEAN PLATELET VOLUME (test code=MPV) 8.9 fL 6.7-11.0 IMMATURE GRANULOCYTE % (test code=IG%) 9.3 % 0.0-5.0 "The appearance of immature granulocytes (myelocytes,pro-myelocytes, meta-myelocytes) in the peripheral blood ofnon- individuals can indicate a response toinfection, inflammation, or other stimulus to the bonemarrow" NUCLEATED RBC % (test code=NRBC%) 0.0 % 0-0 NEUTROPHIL # (test code=NT#) 5.61 K/mm3 1.8-7.7 IMMATURE GRANULOCYTE # (test code=IG#) 0.80 x10 3/uL 0-0.03 LYMPHOCYTE # (test code=LY#) 1.07 K/mm3 1.0-5.0 MONOCYTE # (test code=MO#) 0.69 K/mm3 0-0.8 EOSINOPHIL # (test code=EO#) 0.37 K/mm3 0.0-0.5 BASOPHIL # (test code=BA#) 0.03 K/mm3 0.0-0.2 NUCLEATED RBC # (test code=NRBC#) 0.00 K/mm3 0.0-0.1 MANUAL DIFF REQUIRED (test code=MDIFF) YES STAIN ACCEPTABILITY (test code=STN ACCEPTABLE) TOTAL CELLS COUNTED (test code=TCC) #CELLS SEGMENTED NEUTROPHILS (test code=SEG) % 39-69 LYMPHOCYTE (test code=LYMPH) % 25-55 MONOCYTE (test code=MON) % 0-10 MORPHOLOGY COMMENT (test code=MOC) PLATELET ESTIMATE (test code=PLTEST) PLATELET MORPHOLOGY (test code=PLTMORPH) CBC W/MANUAL [id number] 04:27:00* Test Item Value Reference Range Comments WHITE BLOOD CELL (test code=WBC) 8.6 K/mm3 4.5-12.5 RED BLOOD CELL (test code=RBC) 3.85 mill/mm3 4.0-5.8 HEMOGLOBIN (test code=HGB) 12.0 gram/dL 13.0-17.5 HEMATOCRIT (test code=HCT) 35.7 % 42.0-52.0 MEAN CELL VOLUME (test code=MCV) 92.7 fL 80-98 MEAN CELL HGB (test code=MCH) 31.2 picogram 27.0-33.0 MEAN CELL HGB CONCETRATION (test code=MCHC) 33.6 gram/dL 33.0-36.0 RED CELL DISTRIBUTION WIDTH (test code=RDW) 14.4 % 11.6-16.2 RED CELL DISTRIBUTION WIDTH SD (test code=RDW-SD) 49.1 fL 37.0-51.0 PLATELET COUNT (test code=PLT) 332 K/mm3 150-450 RESULT VERIFIED BY REPEAT ANALYSIS MEAN PLATELET VOLUME (test code=MPV) 8.9 fL 6.7-11.0 IMMATURE GRANULOCYTE % (test code=IG%) 9.3 % 0.0-5.0 "The appearance of immature granulocytes (myelocytes,pro-myelocytes, meta-myelocytes) in the peripheral blood ofnon- individuals can indicate a response toinfection, inflammation, or other stimulus to the bonemarrow" NUCLEATED RBC % (test code=NRBC%) 0.0 % 0-0 NEUTROPHIL # (test code=NT#) 5.61 K/mm3 1.8-7.7 IMMATURE GRANULOCYTE # (test code=IG#) 0.80 x10 3/uL 0-0.03 LYMPHOCYTE # (test code=LY#) 1.07 K/mm3 1.0-5.0 MONOCYTE # (test code=MO#) 0.69 K/mm3 0-0.8 EOSINOPHIL # (test code=EO#) 0.37 K/mm3 0.0-0.5 BASOPHIL # (test code=BA#) 0.03 K/mm3 0.0-0.2 NUCLEATED RBC # (test code=NRBC#) 0.00 K/mm3 0.0-0.1 MANUAL DIFF REQUIRED (test code=MDIFF) YES STAIN ACCEPTABILITY (test code=STN ACCEPTABLE) TOTAL CELLS COUNTED (test code=TCC) #CELLS SEGMENTED NEUTROPHILS (test code=SEG) % 39-69 LYMPHOCYTE (test code=LYMPH) % 25-55 MONOCYTE (test code=MON) % 0-10 EOSINOPHIL (test code=EOS) % 0.0-5.0 CABOT RINGS (test code=CAB) MORPHOLOGY COMMENT (test code=MOC) PLATELET ESTIMATE (test code=PLTEST) PLATELET MORPHOLOGY (test code=PLTMORPH) CBC W/MANUAL [id number] 12:36:00* Test Item Value Reference Range Comments WHITE BLOOD CELL (test code=WBC) 6.0 K/mm3 4.5-12.5 RED BLOOD CELL (test code=RBC) 3.62 mill/mm3 4.0-5.8 HEMOGLOBIN (test code=HGB) 11.4 gram/dL 13.0-17.5 HEMATOCRIT (test code=HCT) 34.5 % 42.0-52.0 MEAN CELL VOLUME (test code=MCV) 95.3 fL 80-98 MEAN CELL HGB (test code=MCH) 31.5 picogram 27.0-33.0 MEAN CELL HGB CONCETRATION (test code=MCHC) 33.0 gram/dL 33.0-36.0 RED CELL DISTRIBUTION WIDTH (test code=RDW) 14.6 % 11.6-16.2 RED CELL DISTRIBUTION WIDTH SD (test code=RDW-SD) 51.2 fL 37.0-51.0 PLATELET COUNT (test code=PLT) 280 K/mm3 150-450 MEAN PLATELET VOLUME (test code=MPV) 10.0 fL 6.7-11.0 IMMATURE GRANULOCYTE % (test code=IG%) 6.5 % 0.0-5.0 "The appearance of immature granulocytes (myelocytes,pro-myelocytes, meta-myelocytes) in the peripheral blood ofnon- individuals can indicate a response toinfection, inflammation, or other stimulus to the bonemarrow" NUCLEATED RBC % (test code=NRBC%) 0.0 % 0-0 NEUTROPHIL # (test code=NT#) 4.04 K/mm3 1.8-7.7 IMMATURE GRANULOCYTE # (test code=IG#) 0.39 x10 3/uL 0-0.03 LYMPHOCYTE # (test code=LY#) 0.63 K/mm3 1.0-5.0 MONOCYTE # (test code=MO#) 0.57 K/mm3 0-0.8 EOSINOPHIL # (test code=EO#) 0.33 K/mm3 0.0-0.5 BASOPHIL # (test code=BA#) 0.06 K/mm3 0.0-0.2 NUCLEATED RBC # (test code=NRBC#) 0.00 K/mm3 0.0-0.1 MANUAL DIFF REQUIRED (test code=MDIFF) YES STAIN ACCEPTABILITY (test code=STN ACCEPTABLE) STAIN ACCEPTABLE TOTAL CELLS COUNTED (test code=TCC) 114 #CELLS SEGMENTED NEUTROPHILS (test code=SEG) 75.4 % 39-69 BAND NEUTROPHIL (test code=BAND) 4.4 % 0-10 LYMPHOCYTE (test code=LYMPH) 2.6 % 25-55 REACTIVE LYMPH (test code=RELYMPH) 0 % MONOCYTE (test code=MON) 10.5 % 0-10 EOSINOPHIL (test code=EOS) 5.3 % 0.0-5.0 BASOPHIL (test code=BASO) 0 % 0-1.0 METAMYELOCYTE (test code=META) 0 % 0-0 MYELOCYTE (test code=MYELO) 1.8 % 0.0-0.0 PROMYELOCYTE (test code=PROM) 0 % 0-0 POIKILOCYTOSIS (test code=POIK) 3+ ANISOCYTOSIS (test code=ANISO) 1+ XIOMARA CELLS (test code=XIOMARA) 2+ NONE PLATELET ESTIMATE (test code=PLTEST) ADEQUATE PLATELET MORPHOLOGY (test code=PLTMORPH) NORMAL IMMATURE FORMS (test code=IMMAT) 0 % 0-0 BASIC METABOLIC [id number] 11:36:00* Test Item Value Reference Range Comments SODIUM (test code=NA) 133 mmol/L 136-145 POTASSIUM (test code=K) 4.0 mmol/L 3.5-5.1 CHLORIDE (test code=CL) 103.0 mmol/L 98-107 CARBON DIOXIDE (test code=CO2) 18.0 mmol/L 21-32 ANION GAP (test code=GAP) 16.0 10-20 GLUCOSE (test code=GLU) 136 mg/dL 74-106 BLOOD UREA NITROGEN (test code=BUN) 19 mg/dL 7-18 GLOMERULAR FILTRATION RATE (test code=GFR) > 60 mL/min >=60 Estimated GFR by using Modified MDRD formula.Chronic kidney disease is defined as either kidney damageor GFR <60 mL/min/1.73 m2 for >3 months. CREATININE (test code=CREAT) 0.70 mg/dL 0.7-1.3 BUN/CREATININE RATIO (test code=BUN/CREA) 27.1 10-20 CALCIUM (test code=CA) 7.6 mg/dL 8.5-10.1 [id number] 11:36:00* Test Item Value Reference Range Comments PHOSPHORUS (test code=PHOS) 0.9 mg/dL 2.5-4.9 [id number] 11:36:00* Test Item Value Reference Range Comments MAGNESIUM (test code=MAG) 1.9 mg/dL 1.8-2.4 BASIC METABOLIC [id number] 11:27:00* Test Item Value Reference Range Comments SODIUM (test code=NA) 133 mmol/L 136-145 POTASSIUM (test code=K) 4.0 mmol/L 3.5-5.1 CHLORIDE (test code=CL) 103.0 mmol/L 98-107 CARBON DIOXIDE (test code=CO2) mmol/L 21-32 ANION GAP (test code=GAP) 10-20 GLUCOSE (test code=GLU) mg/dL 74-106 BLOOD UREA NITROGEN (test code=BUN) mg/dL 7-18 GLOMERULAR FILTRATION RATE (test code=GFR) mL/min >=60 CREATININE (test code=CREAT) mg/dL 0.7-1.3 BUN/CREATININE RATIO (test code=BUN/CREA) 10-20 CALCIUM (test code=CA) mg/dL 8.5-10.1 [id number] 11:27:00* Test Item Value Reference Range Comments PHOSPHORUS (test code=PHOS) mg/dL 2.5-4.9 [id number] 11:27:00* Test Item Value Reference Range Comments MAGNESIUM (test code=MAG) mg/dL 1.8-2.4 CBC W/MANUAL [id number] 11:13:00* Test Item Value Reference Range Comments WHITE BLOOD CELL (test code=WBC) 6.0 K/mm3 4.5-12.5 RED BLOOD CELL (test code=RBC) 3.62 mill/mm3 4.0-5.8 HEMOGLOBIN (test code=HGB) 11.4 gram/dL 13.0-17.5 HEMATOCRIT (test code=HCT) 34.5 % 42.0-52.0 MEAN CELL VOLUME (test code=MCV) 95.3 fL 80-98 MEAN CELL HGB (test code=MCH) 31.5 picogram 27.0-33.0 MEAN CELL HGB CONCETRATION (test code=MCHC) 33.0 gram/dL 33.0-36.0 RED CELL DISTRIBUTION WIDTH (test code=RDW) 14.6 % 11.6-16.2 RED CELL DISTRIBUTION WIDTH SD (test code=RDW-SD) 51.2 fL 37.0-51.0 PLATELET COUNT (test code=PLT) 280 K/mm3 150-450 MEAN PLATELET VOLUME (test code=MPV) 10.0 fL 6.7-11.0 IMMATURE GRANULOCYTE % (test code=IG%) 6.5 % 0.0-5.0 "The appearance of immature granulocytes (myelocytes,pro-myelocytes, meta-myelocytes) in the peripheral blood ofnon- individuals can indicate a response toinfection, inflammation, or other stimulus to the bonemarrow" NUCLEATED RBC % (test code=NRBC%) 0.0 % 0-0 NEUTROPHIL # (test code=NT#) 4.04 K/mm3 1.8-7.7 IMMATURE GRANULOCYTE # (test code=IG#) 0.39 x10 3/uL 0-0.03 LYMPHOCYTE # (test code=LY#) 0.63 K/mm3 1.0-5.0 MONOCYTE # (test code=MO#) 0.57 K/mm3 0-0.8 EOSINOPHIL # (test code=EO#) 0.33 K/mm3 0.0-0.5 BASOPHIL # (test code=BA#) 0.06 K/mm3 0.0-0.2 NUCLEATED RBC # (test code=NRBC#) 0.00 K/mm3 0.0-0.1 MANUAL DIFF REQUIRED (test code=MDIFF) YES STAIN ACCEPTABILITY (test code=STN ACCEPTABLE) TOTAL CELLS COUNTED (test code=TCC) #CELLS SEGMENTED NEUTROPHILS (test code=SEG) % 39-69 LYMPHOCYTE (test code=LYMPH) % 25-55 MONOCYTE (test code=MON) % 0-10 EOSINOPHIL (test code=EOS) % 0.0-5.0 CABOT RINGS (test code=CAB) MORPHOLOGY COMMENT (test code=MOC) PLATELET ESTIMATE (test code=PLTEST) PLATELET MORPHOLOGY (test code=PLTMORPH) CBC W/MANUAL [id number] 11:13:00* Test Item Value Reference Range Comments WHITE BLOOD CELL (test code=WBC) 6.0 K/mm3 4.5-12.5 RED BLOOD CELL (test code=RBC) 3.62 mill/mm3 4.0-5.8 HEMOGLOBIN (test code=HGB) 11.4 gram/dL 13.0-17.5 HEMATOCRIT (test code=HCT) 34.5 % 42.0-52.0 MEAN CELL VOLUME (test code=MCV) 95.3 fL 80-98 MEAN CELL HGB (test code=MCH) 31.5 picogram 27.0-33.0 MEAN CELL HGB CONCETRATION (test code=MCHC) 33.0 gram/dL 33.0-36.0 RED CELL DISTRIBUTION WIDTH (test code=RDW) 14.6 % 11.6-16.2 RED CELL DISTRIBUTION WIDTH SD (test code=RDW-SD) 51.2 fL 37.0-51.0 PLATELET COUNT (test code=PLT) 280 K/mm3 150-450 MEAN PLATELET VOLUME (test code=MPV) 10.0 fL 6.7-11.0 IMMATURE GRANULOCYTE % (test code=IG%) 6.5 % 0.0-5.0 "The appearance of immature granulocytes (myelocytes,pro-myelocytes, meta-myelocytes) in the peripheral blood ofnon- individuals can indicate a response toinfection, inflammation, or other stimulus to the bonemarrow" NUCLEATED RBC % (test code=NRBC%) 0.0 % 0-0 NEUTROPHIL # (test code=NT#) 4.04 K/mm3 1.8-7.7 IMMATURE GRANULOCYTE # (test code=IG#) 0.39 x10 3/uL 0-0.03 LYMPHOCYTE # (test code=LY#) 0.63 K/mm3 1.0-5.0 MONOCYTE # (test code=MO#) 0.57 K/mm3 0-0.8 EOSINOPHIL # (test code=EO#) 0.33 K/mm3 0.0-0.5 BASOPHIL # (test code=BA#) 0.06 K/mm3 0.0-0.2 NUCLEATED RBC # (test code=NRBC#) 0.00 K/mm3 0.0-0.1 MANUAL DIFF REQUIRED (test code=MDIFF) YES STAIN ACCEPTABILITY (test code=STN ACCEPTABLE) TOTAL CELLS COUNTED (test code=TCC) #CELLS SEGMENTED NEUTROPHILS (test code=SEG) % 39-69 LYMPHOCYTE (test code=LYMPH) % 25-55 MONOCYTE (test code=MON) % 0-10 EOSINOPHIL (test code=EOS) % 0.0-5.0 MORPHOLOGY COMMENT (test code=MOC) PLATELET ESTIMATE (test code=PLTEST) PLATELET MORPHOLOGY (test code=PLTMORPH) CBC W/MANUAL [id number] 11:13:00* Test Item Value Reference Range Comments WHITE BLOOD CELL (test code=WBC) 6.0 K/mm3 4.5-12.5 RED BLOOD CELL (test code=RBC) 3.62 mill/mm3 4.0-5.8 HEMOGLOBIN (test code=HGB) 11.4 gram/dL 13.0-17.5 HEMATOCRIT (test code=HCT) 34.5 % 42.0-52.0 MEAN CELL VOLUME (test code=MCV) 95.3 fL 80-98 MEAN CELL HGB (test code=MCH) 31.5 picogram 27.0-33.0 MEAN CELL HGB CONCETRATION (test code=MCHC) 33.0 gram/dL 33.0-36.0 RED CELL DISTRIBUTION WIDTH (test code=RDW) 14.6 % 11.6-16.2 RED CELL DISTRIBUTION WIDTH SD (test code=RDW-SD) 51.2 fL 37.0-51.0 PLATELET COUNT (test code=PLT) 280 K/mm3 150-450 MEAN PLATELET VOLUME (test code=MPV) 10.0 fL 6.7-11.0 IMMATURE GRANULOCYTE % (test code=IG%) 6.5 % 0.0-5.0 "The appearance of immature granulocytes (myelocytes,pro-myelocytes, meta-myelocytes) in the peripheral blood ofnon- individuals can indicate a response toinfection, inflammation, or other stimulus to the bonemarrow" NUCLEATED RBC % (test code=NRBC%) 0.0 % 0-0 NEUTROPHIL # (test code=NT#) 4.04 K/mm3 1.8-7.7 IMMATURE GRANULOCYTE # (test code=IG#) 0.39 x10 3/uL 0-0.03 LYMPHOCYTE # (test code=LY#) 0.63 K/mm3 1.0-5.0 MONOCYTE # (test code=MO#) 0.57 K/mm3 0-0.8 EOSINOPHIL # (test code=EO#) 0.33 K/mm3 0.0-0.5 BASOPHIL # (test code=BA#) 0.06 K/mm3 0.0-0.2 NUCLEATED RBC # (test code=NRBC#) 0.00 K/mm3 0.0-0.1 MANUAL DIFF REQUIRED (test code=MDIFF) YES STAIN ACCEPTABILITY (test code=STN ACCEPTABLE) TOTAL CELLS COUNTED (test code=TCC) #CELLS SEGMENTED NEUTROPHILS (test code=SEG) % 39-69 LYMPHOCYTE (test code=LYMPH) % 25-55 MONOCYTE (test code=MON) % 0-10 MORPHOLOGY COMMENT (test code=MOC) PLATELET ESTIMATE (test code=PLTEST) PLATELET MORPHOLOGY (test code=PLTMORPH) CBC W/MANUAL [id number] 11:12:00* Test Item Value Reference Range Comments WHITE BLOOD CELL (test code=WBC) 6.0 K/mm3 4.5-12.5 RED BLOOD CELL (test code=RBC) 3.62 mill/mm3 4.0-5.8 HEMOGLOBIN (test code=HGB) 11.4 gram/dL 13.0-17.5 HEMATOCRIT (test code=HCT) 34.5 % 42.0-52.0 MEAN CELL VOLUME (test code=MCV) 95.3 fL 80-98 MEAN CELL HGB (test code=MCH) 31.5 picogram 27.0-33.0 MEAN CELL HGB CONCETRATION (test code=MCHC) 33.0 gram/dL 33.0-36.0 RED CELL DISTRIBUTION WIDTH (test code=RDW) 14.6 % 11.6-16.2 RED CELL DISTRIBUTION WIDTH SD (test code=RDW-SD) 51.2 fL 37.0-51.0 PLATELET COUNT (test code=PLT) 280 K/mm3 150-450 MEAN PLATELET VOLUME (test code=MPV) 10.0 fL 6.7-11.0 IMMATURE GRANULOCYTE % (test code=IG%) 6.5 % 0.0-5.0 "The appearance of immature granulocytes (myelocytes,pro-myelocytes, meta-myelocytes) in the peripheral blood ofnon- individuals can indicate a response toinfection, inflammation, or other stimulus to the bonemarrow" NUCLEATED RBC % (test code=NRBC%) 0.0 % 0-0 NEUTROPHIL # (test code=NT#) 4.04 K/mm3 1.8-7.7 IMMATURE GRANULOCYTE # (test code=IG#) 0.39 x10 3/uL 0-0.03 LYMPHOCYTE # (test code=LY#) 0.63 K/mm3 1.0-5.0 MONOCYTE # (test code=MO#) 0.57 K/mm3 0-0.8 EOSINOPHIL # (test code=EO#) 0.33 K/mm3 0.0-0.5 BASOPHIL # (test code=BA#) 0.06 K/mm3 0.0-0.2 NUCLEATED RBC # (test code=NRBC#) 0.00 K/mm3 0.0-0.1 MANUAL DIFF REQUIRED (test code=MDIFF) YES STAIN ACCEPTABILITY (test code=STN ACCEPTABLE) TOTAL CELLS COUNTED (test code=TCC) #CELLS SEGMENTED NEUTROPHILS (test code=SEG) % 39-69 LYMPHOCYTE (test code=LYMPH) % 25-55 MONOCYTE (test code=MON) % 0-10 EOSINOPHIL (test code=EOS) % 0.0-5.0 CABOT RINGS (test code=CAB) MORPHOLOGY COMMENT (test code=MOC) PLATELET ESTIMATE (test code=PLTEST) PLATELET MORPHOLOGY (test code=PLTMORPH) CBC W/MANUAL [id number] 11:12:00* Test Item Value Reference Range Comments WHITE BLOOD CELL (test code=WBC) 6.0 K/mm3 4.5-12.5 RED BLOOD CELL (test code=RBC) 3.62 mill/mm3 4.0-5.8 HEMOGLOBIN (test code=HGB) 11.4 gram/dL 13.0-17.5 HEMATOCRIT (test code=HCT) 34.5 % 42.0-52.0 MEAN CELL VOLUME (test code=MCV) 95.3 fL 80-98 MEAN CELL HGB (test code=MCH) 31.5 picogram 27.0-33.0 MEAN CELL HGB CONCETRATION (test code=MCHC) 33.0 gram/dL 33.0-36.0 RED CELL DISTRIBUTION WIDTH (test code=RDW) 14.6 % 11.6-16.2 RED CELL DISTRIBUTION WIDTH SD (test code=RDW-SD) 51.2 fL 37.0-51.0 PLATELET COUNT (test code=PLT) 280 K/mm3 150-450 MEAN PLATELET VOLUME (test code=MPV) 10.0 fL 6.7-11.0 IMMATURE GRANULOCYTE % (test code=IG%) 6.5 % 0.0-5.0 "The appearance of immature granulocytes (myelocytes,pro-myelocytes, meta-myelocytes) in the peripheral blood ofnon- individuals can indicate a response toinfection, inflammation, or other stimulus to the bonemarrow" NUCLEATED RBC % (test code=NRBC%) 0.0 % 0-0 NEUTROPHIL # (test code=NT#) 4.04 K/mm3 1.8-7.7 IMMATURE GRANULOCYTE # (test code=IG#) 0.39 x10 3/uL 0-0.03 LYMPHOCYTE # (test code=LY#) 0.63 K/mm3 1.0-5.0 MONOCYTE # (test code=MO#) 0.57 K/mm3 0-0.8 EOSINOPHIL # (test code=EO#) 0.33 K/mm3 0.0-0.5 BASOPHIL # (test code=BA#) 0.06 K/mm3 0.0-0.2 NUCLEATED RBC # (test code=NRBC#) 0.00 K/mm3 0.0-0.1 MANUAL DIFF REQUIRED (test code=MDIFF) YES STAIN ACCEPTABILITY (test code=STN ACCEPTABLE) TOTAL CELLS COUNTED (test code=TCC) #CELLS SEGMENTED NEUTROPHILS (test code=SEG) % 39-69 LYMPHOCYTE (test code=LYMPH) % 25-55 MONOCYTE (test code=MON) % 0-10 EOSINOPHIL (test code=EOS) % 0.0-5.0 CABOT RINGS (test code=CAB) MORPHOLOGY COMMENT (test code=MOC) PLATELET ESTIMATE (test code=PLTEST) PLATELET MORPHOLOGY (test code=PLTMORPH) CBC W/AUTO [id number] 11:09:00* Test Item Value Reference Range Comments WHITE BLOOD CELL (test code=WBC) 6.0 K/mm3 4.5-12.5 RED BLOOD CELL (test code=RBC) 3.62 mill/mm3 4.0-5.8 HEMOGLOBIN (test code=HGB) 11.4 gram/dL 13.0-17.5 HEMATOCRIT (test code=HCT) 34.5 % 42.0-52.0 MEAN CELL VOLUME (test code=MCV) 95.3 fL 80-98 MEAN CELL HGB (test code=MCH) 31.5 picogram 27.0-33.0 MEAN CELL HGB CONCETRATION (test code=MCHC) 33.0 gram/dL 33.0-36.0 RED CELL DISTRIBUTION WIDTH (test code=RDW) 14.6 % 11.6-16.2 RED CELL DISTRIBUTION WIDTH SD (test code=RDW-SD) 51.2 fL 37.0-51.0 PLATELET COUNT (test code=PLT) 280 K/mm3 150-450 MEAN PLATELET VOLUME (test code=MPV) 10.0 fL 6.7-11.0 NEUTROPHIL % (test code=NT%) 67.0 % 39.0-69.0 IMMATURE GRANULOCYTE % (test code=IG%) 6.5 % 0.0-5.0 "The appearance of immature granulocytes (myelocytes,pro-myelocytes, meta-myelocytes) in the peripheral blood ofnon- individuals can indicate a response toinfection, inflammation, or other stimulus to the bonemarrow" LYMPHOCYTE % (test code=LY%) 10.5 % 25.0-55.0 MONOCYTE % (test code=MO%) 9.5 % 0.0-10.0 EOSINOPHIL % (test code=EO%) 5.5 % 0.0-5.0 BASOPHIL % (test code=BA%) 1.0 % 0.0-1.0 NUCLEATED RBC % (test code=NRBC%) 0.0 % 0-0 NEUTROPHIL # (test code=NT#) 4.04 K/mm3 1.8-7.7 IMMATURE GRANULOCYTE # (test code=IG#) 0.39 x10 3/uL 0-0.03 LYMPHOCYTE # (test code=LY#) 0.63 K/mm3 1.0-5.0 MONOCYTE # (test code=MO#) 0.57 K/mm3 0-0.8 EOSINOPHIL # (test code=EO#) 0.33 K/mm3 0.0-0.5 BASOPHIL # (test code=BA#) 0.06 K/mm3 0.0-0.2 NUCLEATED RBC # (test code=NRBC#) 0.00 K/mm3 0.0-0.1 [id number] 18:43:00* Test Item Value Reference Range Comments GLUBED (test code=GLUBED) 91 mg/dL 74-106 Performed by certified classifying machine operator at [facility] BILIRUBIN [id number] 13:15:00* Test Item Value Reference Range Comments BILIRUBIN TOTAL (test code=BILT) 1.60 mg/dL 0.0-1.0 URINALYSIS [id number] 13:10:00* Test Item Value Reference Range Comments UA COLOR (test code=COLU) Dark-Yellow YELLOW UA APPEARANCE (test code=APPU) HAZY CLEAR UA GLUCOSE DIPSTICK (test code=DGLUU) NEGATIVE mg/dL NEGATIVE UA BILIRUBIN DIPSTICK (test code=BILU) 0.5 (1+) mg/dL NEGATIVE UA KETONE DIPSTICK (test code=KETU) NEGATIVE mg/dL NEGATIVE UA SPECIFIC GRAVITY (test code=SGU) 1.028 1.001-1.035 UA BLOOD DIPSTICK (test code=SUSIE) 0.06 mg/dL (1+) mg/dL NEGATIVE UA PH DIPSTICK (test code=ANDREA) 6.0 5.0-8.0 UA PROTEIN DIPSTICK (test code=PROU) 30 (1+) mg/dL NEGATIVE UA UROBILINIOGEN DIPSTICK (test code=URO) Normal mg/dL NEGATIVE UA NITRITE DIPSTICK (test code=RONNIE) NEGATIVE NEGATIVE UA LEUKOCYTE ESTERASE W REFLEX (test code=LEUUR) NEGATIVE Jose/uL NEGATIVE UA WBC (test code=WBCU) 6-10 per HPF 0-5 UA RBC (test code=RBCU) 21-50 #/HPF 0-5 UA EPITHELIAL CELLS (test code=EPIU) FEW per HPF FEW UA BACTERIA (test code=BACU) NONE SEEN #/HPF NONE UA HYALINE CAST (test code=HYALU) 6-10 #/LPF 0-5 UA MUCUS (test code=MUCU) FEW #/LPF FEW Urine Source? CatheterURINALYSIS [id number] 12:57:00* Test Item Value Reference Range Comments UA COLOR (test code=COLU) Dark-Yellow YELLOW UA APPEARANCE (test code=APPU) HAZY CLEAR UA GLUCOSE DIPSTICK (test code=DGLUU) NEGATIVE mg/dL NEGATIVE UA BILIRUBIN DIPSTICK (test code=BILU) 0.5 (1+) mg/dL NEGATIVE UA KETONE DIPSTICK (test code=KETU) NEGATIVE mg/dL NEGATIVE UA SPECIFIC GRAVITY (test code=SGU) 1.028 1.001-1.035 UA BLOOD DIPSTICK (test code=SUSIE) 0.06 mg/dL (1+) mg/dL NEGATIVE UA PH DIPSTICK (test code=ANDREA) 6.0 5.0-8.0 UA PROTEIN DIPSTICK (test code=PROU) 30 (1+) mg/dL NEGATIVE UA UROBILINIOGEN DIPSTICK (test code=URO) Normal mg/dL NEGATIVE UA NITRITE DIPSTICK (test code=RONNIE) NEGATIVE NEGATIVE UA LEUKOCYTE ESTERASE W REFLEX (test code=LEUUR) NEGATIVE Jose/uL NEGATIVE UA WBC (test code=WBCU) per HPF 0-5 UA RBC (test code=RBCU) per HPF 0-5 UA EPITHELIAL CELLS (test code=EPIU) per HPF Few UA BACTERIA (test code=BACU) per HPF NONE Urine Source? CatheterCBC W/MANUAL [id number] 05:42:00* Test Item Value Reference Range Comments WHITE BLOOD CELL (test code=WBC) 5.3 K/mm3 4.5-12.5 RED BLOOD CELL (test code=RBC) 3.58 mill/mm3 4.0-5.8 HEMOGLOBIN (test code=HGB) 11.2 gram/dL 13.0-17.5 HEMATOCRIT (test code=HCT) 33.6 % 42.0-52.0 MEAN CELL VOLUME (test code=MCV) 93.9 fL 80-98 MEAN CELL HGB (test code=MCH) 31.3 picogram 27.0-33.0 MEAN CELL HGB CONCETRATION (test code=MCHC) 33.3 gram/dL 33.0-36.0 RED CELL DISTRIBUTION WIDTH (test code=RDW) 14.5 % 11.6-16.2 RED CELL DISTRIBUTION WIDTH SD (test code=RDW-SD) 50.1 fL 37.0-51.0 PLATELET COUNT (test code=PLT) 216 K/mm3 150-450 MEAN PLATELET VOLUME (test code=MPV) 9.3 fL 6.7-11.0 IMMATURE GRANULOCYTE % (test code=IG%) 0.8 % 0.0-5.0 NUCLEATED RBC % (test code=NRBC%) 0.0 % 0-0 NEUTROPHIL # (test code=NT#) 3.70 K/mm3 1.8-7.7 IMMATURE GRANULOCYTE # (test code=IG#) 0.04 x10 3/uL 0-0.03 LYMPHOCYTE # (test code=LY#) 0.47 K/mm3 1.0-5.0 MONOCYTE # (test code=MO#) 1.08 K/mm3 0-0.8 EOSINOPHIL # (test code=EO#) 0.01 K/mm3 0.0-0.5 BASOPHIL # (test code=BA#) 0.03 K/mm3 0.0-0.2 NUCLEATED RBC # (test code=NRBC#) 0.00 K/mm3 0.0-0.1 MANUAL DIFF REQUIRED (test code=MDIFF) YES STAIN ACCEPTABILITY (test code=STN ACCEPTABLE) STAIN ACCEPTABLE TOTAL CELLS COUNTED (test code=TCC) 115 #CELLS SEGMENTED NEUTROPHILS (test code=SEG) 73.0 % 39-69 BAND NEUTROPHIL (test code=BAND) 0 % 0-10 LYMPHOCYTE (test code=LYMPH) 9.6 % 25-55 REACTIVE LYMPH (test code=RELYMPH) 0 % MONOCYTE (test code=MON) 13.1 % 0-10 EOSINOPHIL (test code=EOS) 0 % 0.0-5.0 BASOPHIL (test code=BASO) 0 % 0-1.0 METAMYELOCYTE (test code=META) 1.7 % 0-0 MYELOCYTE (test code=MYELO) 2.6 % 0.0-0.0 PROMYELOCYTE (test code=PROM) 0 % 0-0 MORPHOLOGY COMMENT (test code=MOC) NORMAL PLATELET ESTIMATE (test code=PLTEST) ADEQUATE PLATELET MORPHOLOGY (test code=PLTMORPH) NORMAL IMMATURE FORMS (test code=IMMAT) 0 % 0-0 BASIC METABOLIC [id number] 05:29:00* Test Item Value Reference Range Comments SODIUM (test code=NA) 134 mmol/L 136-145 POTASSIUM (test code=K) 3.5 mmol/L 3.5-5.1 CHLORIDE (test code=CL) 104.0 mmol/L 98-107 CARBON DIOXIDE (test code=CO2) 21.0 mmol/L 21-32 ANION GAP (test code=GAP) 12.5 10-20 GLUCOSE (test code=GLU) 103 mg/dL 74-106 BLOOD UREA NITROGEN (test code=BUN) 26 mg/dL 7-18 RESULT VERIFIED BY REPEAT ANALYSIS GLOMERULAR FILTRATION RATE (test code=GFR) 59 mL/min >=60 Estimated GFR by using Modified MDRD formula.Chronic kidney disease is defined as either kidney damageor GFR <60 mL/min/1.73 m2 for >3 months. CREATININE (test code=CREAT) 1.20 mg/dL 0.7-1.3 BUN/CREATININE RATIO (test code=BUN/CREA) 21.7 10-20 CALCIUM (test code=CA) 7.8 mg/dL 8.5-10.1 CBC W/MANUAL [id number] 05:11:00* Test Item Value Reference Range Comments WHITE BLOOD CELL (test code=WBC) 5.3 K/mm3 4.5-12.5 RED BLOOD CELL (test code=RBC) 3.58 mill/mm3 4.0-5.8 HEMOGLOBIN (test code=HGB) 11.2 gram/dL 13.0-17.5 HEMATOCRIT (test code=HCT) 33.6 % 42.0-52.0 MEAN CELL VOLUME (test code=MCV) 93.9 fL 80-98 MEAN CELL HGB (test code=MCH) 31.3 picogram 27.0-33.0 MEAN CELL HGB CONCETRATION (test code=MCHC) 33.3 gram/dL 33.0-36.0 RED CELL DISTRIBUTION WIDTH (test code=RDW) 14.5 % 11.6-16.2 RED CELL DISTRIBUTION WIDTH SD (test code=RDW-SD) 50.1 fL 37.0-51.0 PLATELET COUNT (test code=PLT) 216 K/mm3 150-450 MEAN PLATELET VOLUME (test code=MPV) 9.3 fL 6.7-11.0 IMMATURE GRANULOCYTE % (test code=IG%) 0.8 % 0.0-5.0 NUCLEATED RBC % (test code=NRBC%) 0.0 % 0-0 NEUTROPHIL # (test code=NT#) 3.70 K/mm3 1.8-7.7 IMMATURE GRANULOCYTE # (test code=IG#) 0.04 x10 3/uL 0-0.03 LYMPHOCYTE # (test code=LY#) 0.47 K/mm3 1.0-5.0 MONOCYTE # (test code=MO#) 1.08 K/mm3 0-0.8 EOSINOPHIL # (test code=EO#) 0.01 K/mm3 0.0-0.5 BASOPHIL # (test code=BA#) 0.03 K/mm3 0.0-0.2 NUCLEATED RBC # (test code=NRBC#) 0.00 K/mm3 0.0-0.1 MANUAL DIFF REQUIRED (test code=MDIFF) YES STAIN ACCEPTABILITY (test code=STN ACCEPTABLE) TOTAL CELLS COUNTED (test code=TCC) #CELLS SEGMENTED NEUTROPHILS (test code=SEG) % 39-69 LYMPHOCYTE (test code=LYMPH) % 25-55 MONOCYTE (test code=MON) % 0-10 EOSINOPHIL (test code=EOS) % 0.0-5.0 CABOT RINGS (test code=CAB) MORPHOLOGY COMMENT (test code=MOC) PLATELET ESTIMATE (test code=PLTEST) PLATELET MORPHOLOGY (test code=PLTMORPH) CBC W/MANUAL [id number] 05:11:00* Test Item Value Reference Range Comments WHITE BLOOD CELL (test code=WBC) 5.3 K/mm3 4.5-12.5 RED BLOOD CELL (test code=RBC) 3.58 mill/mm3 4.0-5.8 HEMOGLOBIN (test code=HGB) 11.2 gram/dL 13.0-17.5 HEMATOCRIT (test code=HCT) 33.6 % 42.0-52.0 MEAN CELL VOLUME (test code=MCV) 93.9 fL 80-98 MEAN CELL HGB (test code=MCH) 31.3 picogram 27.0-33.0 MEAN CELL HGB CONCETRATION (test code=MCHC) 33.3 gram/dL 33.0-36.0 RED CELL DISTRIBUTION WIDTH (test code=RDW) 14.5 % 11.6-16.2 RED CELL DISTRIBUTION WIDTH SD (test code=RDW-SD) 50.1 fL 37.0-51.0 PLATELET COUNT (test code=PLT) 216 K/mm3 150-450 MEAN PLATELET VOLUME (test code=MPV) 9.3 fL 6.7-11.0 IMMATURE GRANULOCYTE % (test code=IG%) 0.8 % 0.0-5.0 NUCLEATED RBC % (test code=NRBC%) 0.0 % 0-0 NEUTROPHIL # (test code=NT#) 3.70 K/mm3 1.8-7.7 IMMATURE GRANULOCYTE # (test code=IG#) 0.04 x10 3/uL 0-0.03 LYMPHOCYTE # (test code=LY#) 0.47 K/mm3 1.0-5.0 MONOCYTE # (test code=MO#) 1.08 K/mm3 0-0.8 EOSINOPHIL # (test code=EO#) 0.01 K/mm3 0.0-0.5 BASOPHIL # (test code=BA#) 0.03 K/mm3 0.0-0.2 NUCLEATED RBC # (test code=NRBC#) 0.00 K/mm3 0.0-0.1 MANUAL DIFF REQUIRED (test code=MDIFF) YES STAIN ACCEPTABILITY (test code=STN ACCEPTABLE) TOTAL CELLS COUNTED (test code=TCC) #CELLS SEGMENTED NEUTROPHILS (test code=SEG) % 39-69 LYMPHOCYTE (test code=LYMPH) % 25-55 MONOCYTE (test code=MON) % 0-10 EOSINOPHIL (test code=EOS) % 0.0-5.0 CABOT RINGS (test code=CAB) MORPHOLOGY COMMENT (test code=MOC) PLATELET ESTIMATE (test code=PLTEST) PLATELET MORPHOLOGY (test code=PLTMORPH) CBC W/MANUAL [id number] 05:11:00* Test Item Value Reference Range Comments WHITE BLOOD CELL (test code=WBC) 5.3 K/mm3 4.5-12.5 RED BLOOD CELL (test code=RBC) 3.58 mill/mm3 4.0-5.8 HEMOGLOBIN (test code=HGB) 11.2 gram/dL 13.0-17.5 HEMATOCRIT (test code=HCT) 33.6 % 42.0-52.0 MEAN CELL VOLUME (test code=MCV) 93.9 fL 80-98 MEAN CELL HGB (test code=MCH) 31.3 picogram 27.0-33.0 MEAN CELL HGB CONCETRATION (test code=MCHC) 33.3 gram/dL 33.0-36.0 RED CELL DISTRIBUTION WIDTH (test code=RDW) 14.5 % 11.6-16.2 RED CELL DISTRIBUTION WIDTH SD (test code=RDW-SD) 50.1 fL 37.0-51.0 PLATELET COUNT (test code=PLT) 216 K/mm3 150-450 MEAN PLATELET VOLUME (test code=MPV) 9.3 fL 6.7-11.0 IMMATURE GRANULOCYTE % (test code=IG%) 0.8 % 0.0-5.0 NUCLEATED RBC % (test code=NRBC%) 0.0 % 0-0 NEUTROPHIL # (test code=NT#) 3.70 K/mm3 1.8-7.7 IMMATURE GRANULOCYTE # (test code=IG#) 0.04 x10 3/uL 0-0.03 LYMPHOCYTE # (test code=LY#) 0.47 K/mm3 1.0-5.0 MONOCYTE # (test code=MO#) 1.08 K/mm3 0-0.8 EOSINOPHIL # (test code=EO#) 0.01 K/mm3 0.0-0.5 BASOPHIL # (test code=BA#) 0.03 K/mm3 0.0-0.2 NUCLEATED RBC # (test code=NRBC#) 0.00 K/mm3 0.0-0.1 MANUAL DIFF REQUIRED (test code=MDIFF) YES STAIN ACCEPTABILITY (test code=STN ACCEPTABLE) TOTAL CELLS COUNTED (test code=TCC) #CELLS SEGMENTED NEUTROPHILS (test code=SEG) % 39-69 LYMPHOCYTE (test code=LYMPH) % 25-55 MONOCYTE (test code=MON) % 0-10 EOSINOPHIL (test code=EOS) % 0.0-5.0 MORPHOLOGY COMMENT (test code=MOC) PLATELET ESTIMATE (test code=PLTEST) PLATELET MORPHOLOGY (test code=PLTMORPH) CBC W/MANUAL [id number] 05:11:00* Test Item Value Reference Range Comments WHITE BLOOD CELL (test code=WBC) 5.3 K/mm3 4.5-12.5 RED BLOOD CELL (test code=RBC) 3.58 mill/mm3 4.0-5.8 HEMOGLOBIN (test code=HGB) 11.2 gram/dL 13.0-17.5 HEMATOCRIT (test code=HCT) 33.6 % 42.0-52.0 MEAN CELL VOLUME (test code=MCV) 93.9 fL 80-98 MEAN CELL HGB (test code=MCH) 31.3 picogram 27.0-33.0 MEAN CELL HGB CONCETRATION (test code=MCHC) 33.3 gram/dL 33.0-36.0 RED CELL DISTRIBUTION WIDTH (test code=RDW) 14.5 % 11.6-16.2 RED CELL DISTRIBUTION WIDTH SD (test code=RDW-SD) 50.1 fL 37.0-51.0 PLATELET COUNT (test code=PLT) 216 K/mm3 150-450 MEAN PLATELET VOLUME (test code=MPV) 9.3 fL 6.7-11.0 IMMATURE GRANULOCYTE % (test code=IG%) 0.8 % 0.0-5.0 NUCLEATED RBC % (test code=NRBC%) 0.0 % 0-0 NEUTROPHIL # (test code=NT#) 3.70 K/mm3 1.8-7.7 IMMATURE GRANULOCYTE # (test code=IG#) 0.04 x10 3/uL 0-0.03 LYMPHOCYTE # (test code=LY#) 0.47 K/mm3 1.0-5.0 MONOCYTE # (test code=MO#) 1.08 K/mm3 0-0.8 EOSINOPHIL # (test code=EO#) 0.01 K/mm3 0.0-0.5 BASOPHIL # (test code=BA#) 0.03 K/mm3 0.0-0.2 NUCLEATED RBC # (test code=NRBC#) 0.00 K/mm3 0.0-0.1 MANUAL DIFF REQUIRED (test code=MDIFF) YES STAIN ACCEPTABILITY (test code=STN ACCEPTABLE) TOTAL CELLS COUNTED (test code=TCC) #CELLS SEGMENTED NEUTROPHILS (test code=SEG) % 39-69 LYMPHOCYTE (test code=LYMPH) % 25-55 MONOCYTE (test code=MON) % 0-10 MORPHOLOGY COMMENT (test code=MOC) PLATELET ESTIMATE (test code=PLTEST) PLATELET MORPHOLOGY (test code=PLTMORPH) BASIC METABOLIC [id number] 05:11:00* Test Item Value Reference Range Comments SODIUM (test code=NA) 134 mmol/L 136-145 POTASSIUM (test code=K) 3.5 mmol/L 3.5-5.1 CHLORIDE (test code=CL) 104.0 mmol/L 98-107 CARBON DIOXIDE (test code=CO2) mmol/L 21-32 ANION GAP (test code=GAP) 10-20 GLUCOSE (test code=GLU) mg/dL 74-106 BLOOD UREA NITROGEN (test code=BUN) mg/dL 7-18 GLOMERULAR FILTRATION RATE (test code=GFR) mL/min >=60 CREATININE (test code=CREAT) mg/dL 0.7-1.3 BUN/CREATININE RATIO (test code=BUN/CREA) 10-20 CALCIUM (test code=CA) mg/dL 8.5-10.1 CBC W/MANUAL [id number] 05:11:00* Test Item Value Reference Range Comments WHITE BLOOD CELL (test code=WBC) 5.3 K/mm3 4.5-12.5 RED BLOOD CELL (test code=RBC) 3.58 mill/mm3 4.0-5.8 HEMOGLOBIN (test code=HGB) 11.2 gram/dL 13.0-17.5 HEMATOCRIT (test code=HCT) 33.6 % 42.0-52.0 MEAN CELL VOLUME (test code=MCV) 93.9 fL 80-98 MEAN CELL HGB (test code=MCH) 31.3 picogram 27.0-33.0 MEAN CELL HGB CONCETRATION (test code=MCHC) 33.3 gram/dL 33.0-36.0 RED CELL DISTRIBUTION WIDTH (test code=RDW) 14.5 % 11.6-16.2 RED CELL DISTRIBUTION WIDTH SD (test code=RDW-SD) 50.1 fL 37.0-51.0 PLATELET COUNT (test code=PLT) 216 K/mm3 150-450 MEAN PLATELET VOLUME (test code=MPV) 9.3 fL 6.7-11.0 IMMATURE GRANULOCYTE % (test code=IG%) 0.8 % 0.0-5.0 NUCLEATED RBC % (test code=NRBC%) 0.0 % 0-0 NEUTROPHIL # (test code=NT#) 3.70 K/mm3 1.8-7.7 IMMATURE GRANULOCYTE # (test code=IG#) 0.04 x10 3/uL 0-0.03 LYMPHOCYTE # (test code=LY#) 0.47 K/mm3 1.0-5.0 MONOCYTE # (test code=MO#) 1.08 K/mm3 0-0.8 EOSINOPHIL # (test code=EO#) 0.01 K/mm3 0.0-0.5 BASOPHIL # (test code=BA#) 0.03 K/mm3 0.0-0.2 NUCLEATED RBC # (test code=NRBC#) 0.00 K/mm3 0.0-0.1 MANUAL DIFF REQUIRED (test code=MDIFF) YES STAIN ACCEPTABILITY (test code=STN ACCEPTABLE) TOTAL CELLS COUNTED (test code=TCC) #CELLS SEGMENTED NEUTROPHILS (test code=SEG) % 39-69 LYMPHOCYTE (test code=LYMPH) % 25-55 MONOCYTE (test code=MON) % 0-10 EOSINOPHIL (test code=EOS) % 0.0-5.0 CABOT RINGS (test code=CAB) MORPHOLOGY COMMENT (test code=MOC) PLATELET ESTIMATE (test code=PLTEST) PLATELET MORPHOLOGY (test code=PLTMORPH) CBC W/MANUAL [id number] 06:14:00* Test Item Value Reference Range Comments WHITE BLOOD CELL (test code=WBC) 7.3 K/mm3 4.5-12.5 RED BLOOD CELL (test code=RBC) 3.83 mill/mm3 4.0-5.8 HEMOGLOBIN (test code=HGB) 12.1 gram/dL 13.0-17.5 HEMATOCRIT (test code=HCT) 36.1 % 42.0-52.0 MEAN CELL VOLUME (test code=MCV) 94.3 fL 80-98 MEAN CELL HGB (test code=MCH) 31.6 picogram 27.0-33.0 MEAN CELL HGB CONCETRATION (test code=MCHC) 33.5 gram/dL 33.0-36.0 RED CELL DISTRIBUTION WIDTH (test code=RDW) 14.4 % 11.6-16.2 RED CELL DISTRIBUTION WIDTH SD (test code=RDW-SD) 49.6 fL 37.0-51.0 PLATELET COUNT (test code=PLT) 180 K/mm3 150-450 MEAN PLATELET VOLUME (test code=MPV) 9.2 fL 6.7-11.0 NEUTROPHIL % (test code=NT%) 79.7 % 39.0-69.0 IMMATURE GRANULOCYTE % (test code=IG%) 0.4 % 0.0-5.0 LYMPHOCYTE % (test code=LY%) 8.0 % 25.0-55.0 MONOCYTE % (test code=MO%) 11.0 % 0.0-10.0 EOSINOPHIL % (test code=EO%) 0.5 % 0.0-5.0 BASOPHIL % (test code=BA%) 0.4 % 0.0-1.0 NUCLEATED RBC % (test code=NRBC%) 0.0 % 0-0 NEUTROPHIL # (test code=NT#) 5.81 K/mm3 1.8-7.7 IMMATURE GRANULOCYTE # (test code=IG#) 0.03 x10 3/uL 0-0.03 LYMPHOCYTE # (test code=LY#) 0.58 K/mm3 1.0-5.0 MONOCYTE # (test code=MO#) 0.80 K/mm3 0-0.8 EOSINOPHIL # (test code=EO#) 0.04 K/mm3 0.0-0.5 BASOPHIL # (test code=BA#) 0.03 K/mm3 0.0-0.2 NUCLEATED RBC # (test code=NRBC#) 0.00 K/mm3 0.0-0.1 MANUAL DIFF REQUIRED (test code=MDIFF) DIFF NEEDED STAIN ACCEPTABILITY (test code=STN ACCEPTABLE) STAIN ACCEPTABLE TOTAL CELLS COUNTED (test code=TCC) 115 #CELLS SEGMENTED NEUTROPHILS (test code=SEG) 79.1 % 39-69 BAND NEUTROPHIL (test code=BAND) 1.7 % 0-10 LYMPHOCYTE (test code=LYMPH) 9.6 % 25-55 REACTIVE LYMPH (test code=RELYMPH) 0 % MONOCYTE (test code=MON) 9.6 % 0-10 EOSINOPHIL (test code=EOS) 0 % 0.0-5.0 BASOPHIL (test code=BASO) 0 % 0-1.0 METAMYELOCYTE (test code=META) 0 % 0-0 MYELOCYTE (test code=MYELO) 0 % 0.0-0.0 PROMYELOCYTE (test code=PROM) 0 % 0-0 POLYCHROMASIA (test code=POLC) 1+ ANISOCYTOSIS (test code=ANISO) 1+ MORPHOLOGY COMMENT (test code=MOC) TEST NOT PERFORMED PLATELET ESTIMATE (test code=PLTEST) ADEQUATE PLATELET MORPHOLOGY (test code=PLTMORPH) NORMAL IMMATURE FORMS (test code=IMMAT) 0 % 0-0 BASIC METABOLIC [id number] 06:09:00* Test Item Value Reference Range Comments SODIUM (test code=NA) 135 mmol/L 136-145 POTASSIUM (test code=K) 3.5 mmol/L 3.5-5.1 CHLORIDE (test code=CL) 103.0 mmol/L 98-107 CARBON DIOXIDE (test code=CO2) 21.0 mmol/L 21-32 ANION GAP (test code=GAP) 14.5 10-20 GLUCOSE (test code=GLU) 89 mg/dL 74-106 BLOOD UREA NITROGEN (test code=BUN) 15 mg/dL 7-18 GLOMERULAR FILTRATION RATE (test code=GFR) > 60 mL/min >=60 Estimated GFR by using Modified MDRD formula.Chronic kidney disease is defined as either kidney damageor GFR <60 mL/min/1.73 m2 for >3 months. CREATININE (test code=CREAT) 0.90 mg/dL 0.7-1.3 BUN/CREATININE RATIO (test code=BUN/CREA) 16.7 10-20 CALCIUM (test code=CA) 8.5 mg/dL 8.5-10.1 BASIC METABOLIC [id number] 05:58:00* Test Item Value Reference Range Comments SODIUM (test code=NA) 135 mmol/L 136-145 POTASSIUM (test code=K) 3.5 mmol/L 3.5-5.1 CHLORIDE (test code=CL) 103.0 mmol/L 98-107 CARBON DIOXIDE (test code=CO2) mmol/L 21-32 ANION GAP (test code=GAP) 10-20 GLUCOSE (test code=GLU) mg/dL 74-106 BLOOD UREA NITROGEN (test code=BUN) mg/dL 7-18 GLOMERULAR FILTRATION RATE (test code=GFR) mL/min >=60 CREATININE (test code=CREAT) mg/dL 0.7-1.3 BUN/CREATININE RATIO (test code=BUN/CREA) 10-20 CALCIUM (test code=CA) mg/dL 8.5-10.1 CBC W/MANUAL [id number] 05:35:00* Test Item Value Reference Range Comments WHITE BLOOD CELL (test code=WBC) 7.3 K/mm3 4.5-12.5 RED BLOOD CELL (test code=RBC) 3.83 mill/mm3 4.0-5.8 HEMOGLOBIN (test code=HGB) 12.1 gram/dL 13.0-17.5 HEMATOCRIT (test code=HCT) 36.1 % 42.0-52.0 MEAN CELL VOLUME (test code=MCV) 94.3 fL 80-98 MEAN CELL HGB (test code=MCH) 31.6 picogram 27.0-33.0 MEAN CELL HGB CONCETRATION (test code=MCHC) 33.5 gram/dL 33.0-36.0 RED CELL DISTRIBUTION WIDTH (test code=RDW) 14.4 % 11.6-16.2 RED CELL DISTRIBUTION WIDTH SD (test code=RDW-SD) 49.6 fL 37.0-51.0 PLATELET COUNT (test code=PLT) 180 K/mm3 150-450 MEAN PLATELET VOLUME (test code=MPV) 9.2 fL 6.7-11.0 NEUTROPHIL % (test code=NT%) 79.7 % 39.0-69.0 IMMATURE GRANULOCYTE % (test code=IG%) 0.4 % 0.0-5.0 LYMPHOCYTE % (test code=LY%) 8.0 % 25.0-55.0 MONOCYTE % (test code=MO%) 11.0 % 0.0-10.0 EOSINOPHIL % (test code=EO%) 0.5 % 0.0-5.0 BASOPHIL % (test code=BA%) 0.4 % 0.0-1.0 NUCLEATED RBC % (test code=NRBC%) 0.0 % 0-0 NEUTROPHIL # (test code=NT#) 5.81 K/mm3 1.8-7.7 IMMATURE GRANULOCYTE # (test code=IG#) 0.03 x10 3/uL 0-0.03 LYMPHOCYTE # (test code=LY#) 0.58 K/mm3 1.0-5.0 MONOCYTE # (test code=MO#) 0.80 K/mm3 0-0.8 EOSINOPHIL # (test code=EO#) 0.04 K/mm3 0.0-0.5 BASOPHIL # (test code=BA#) 0.03 K/mm3 0.0-0.2 NUCLEATED RBC # (test code=NRBC#) 0.00 K/mm3 0.0-0.1 MANUAL DIFF REQUIRED (test code=MDIFF) DIFF NEEDED STAIN ACCEPTABILITY (test code=STN ACCEPTABLE) TOTAL CELLS COUNTED (test code=TCC) #CELLS SEGMENTED NEUTROPHILS (test code=SEG) % 39-69 LYMPHOCYTE (test code=LYMPH) % 25-55 MONOCYTE (test code=MON) % 0-10 EOSINOPHIL (test code=EOS) % 0.0-5.0 CABOT RINGS (test code=CAB) MORPHOLOGY COMMENT (test code=MOC) PLATELET ESTIMATE (test code=PLTEST) PLATELET MORPHOLOGY (test code=PLTMORPH) CBC W/MANUAL [id number] 05:35:00* Test Item Value Reference Range Comments WHITE BLOOD CELL (test code=WBC) 7.3 K/mm3 4.5-12.5 RED BLOOD CELL (test code=RBC) 3.83 mill/mm3 4.0-5.8 HEMOGLOBIN (test code=HGB) 12.1 gram/dL 13.0-17.5 HEMATOCRIT (test code=HCT) 36.1 % 42.0-52.0 MEAN CELL VOLUME (test code=MCV) 94.3 fL 80-98 MEAN CELL HGB (test code=MCH) 31.6 picogram 27.0-33.0 MEAN CELL HGB CONCETRATION (test code=MCHC) 33.5 gram/dL 33.0-36.0 RED CELL DISTRIBUTION WIDTH (test code=RDW) 14.4 % 11.6-16.2 RED CELL DISTRIBUTION WIDTH SD (test code=RDW-SD) 49.6 fL 37.0-51.0 PLATELET COUNT (test code=PLT) 180 K/mm3 150-450 MEAN PLATELET VOLUME (test code=MPV) 9.2 fL 6.7-11.0 NEUTROPHIL % (test code=NT%) 79.7 % 39.0-69.0 IMMATURE GRANULOCYTE % (test code=IG%) 0.4 % 0.0-5.0 LYMPHOCYTE % (test code=LY%) 8.0 % 25.0-55.0 MONOCYTE % (test code=MO%) 11.0 % 0.0-10.0 EOSINOPHIL % (test code=EO%) 0.5 % 0.0-5.0 BASOPHIL % (test code=BA%) 0.4 % 0.0-1.0 NUCLEATED RBC % (test code=NRBC%) 0.0 % 0-0 NEUTROPHIL # (test code=NT#) 5.81 K/mm3 1.8-7.7 IMMATURE GRANULOCYTE # (test code=IG#) 0.03 x10 3/uL 0-0.03 LYMPHOCYTE # (test code=LY#) 0.58 K/mm3 1.0-5.0 MONOCYTE # (test code=MO#) 0.80 K/mm3 0-0.8 EOSINOPHIL # (test code=EO#) 0.04 K/mm3 0.0-0.5 BASOPHIL # (test code=BA#) 0.03 K/mm3 0.0-0.2 NUCLEATED RBC # (test code=NRBC#) 0.00 K/mm3 0.0-0.1 MANUAL DIFF REQUIRED (test code=MDIFF) DIFF NEEDED STAIN ACCEPTABILITY (test code=STN ACCEPTABLE) TOTAL CELLS COUNTED (test code=TCC) #CELLS SEGMENTED NEUTROPHILS (test code=SEG) % 39-69 LYMPHOCYTE (test code=LYMPH) % 25-55 MONOCYTE (test code=MON) % 0-10 EOSINOPHIL (test code=EOS) % 0.0-5.0 CABOT RINGS (test code=CAB) MORPHOLOGY COMMENT (test code=MOC) PLATELET ESTIMATE (test code=PLTEST) PLATELET MORPHOLOGY (test code=PLTMORPH) CBC W/MANUAL [id number] 05:35:00* Test Item Value Reference Range Comments WHITE BLOOD CELL (test code=WBC) 7.3 K/mm3 4.5-12.5 RED BLOOD CELL (test code=RBC) 3.83 mill/mm3 4.0-5.8 HEMOGLOBIN (test code=HGB) 12.1 gram/dL 13.0-17.5 HEMATOCRIT (test code=HCT) 36.1 % 42.0-52.0 MEAN CELL VOLUME (test code=MCV) 94.3 fL 80-98 MEAN CELL HGB (test code=MCH) 31.6 picogram 27.0-33.0 MEAN CELL HGB CONCETRATION (test code=MCHC) 33.5 gram/dL 33.0-36.0 RED CELL DISTRIBUTION WIDTH (test code=RDW) 14.4 % 11.6-16.2 RED CELL DISTRIBUTION WIDTH SD (test code=RDW-SD) 49.6 fL 37.0-51.0 PLATELET COUNT (test code=PLT) 180 K/mm3 150-450 MEAN PLATELET VOLUME (test code=MPV) 9.2 fL 6.7-11.0 NEUTROPHIL % (test code=NT%) 79.7 % 39.0-69.0 IMMATURE GRANULOCYTE % (test code=IG%) 0.4 % 0.0-5.0 LYMPHOCYTE % (test code=LY%) 8.0 % 25.0-55.0 MONOCYTE % (test code=MO%) 11.0 % 0.0-10.0 EOSINOPHIL % (test code=EO%) 0.5 % 0.0-5.0 BASOPHIL % (test code=BA%) 0.4 % 0.0-1.0 NUCLEATED RBC % (test code=NRBC%) 0.0 % 0-0 NEUTROPHIL # (test code=NT#) 5.81 K/mm3 1.8-7.7 IMMATURE GRANULOCYTE # (test code=IG#) 0.03 x10 3/uL 0-0.03 LYMPHOCYTE # (test code=LY#) 0.58 K/mm3 1.0-5.0 MONOCYTE # (test code=MO#) 0.80 K/mm3 0-0.8 EOSINOPHIL # (test code=EO#) 0.04 K/mm3 0.0-0.5 BASOPHIL # (test code=BA#) 0.03 K/mm3 0.0-0.2 NUCLEATED RBC # (test code=NRBC#) 0.00 K/mm3 0.0-0.1 MANUAL DIFF REQUIRED (test code=MDIFF) DIFF NEEDED STAIN ACCEPTABILITY (test code=STN ACCEPTABLE) TOTAL CELLS COUNTED (test code=TCC) #CELLS SEGMENTED NEUTROPHILS (test code=SEG) % 39-69 LYMPHOCYTE (test code=LYMPH) % 25-55 MONOCYTE (test code=MON) % 0-10 EOSINOPHIL (test code=EOS) % 0.0-5.0 MORPHOLOGY COMMENT (test code=MOC) PLATELET ESTIMATE (test code=PLTEST) PLATELET MORPHOLOGY (test code=PLTMORPH) CBC W/MANUAL [id number] 05:35:00* Test Item Value Reference Range Comments WHITE BLOOD CELL (test code=WBC) 7.3 K/mm3 4.5-12.5 RED BLOOD CELL (test code=RBC) 3.83 mill/mm3 4.0-5.8 HEMOGLOBIN (test code=HGB) 12.1 gram/dL 13.0-17.5 HEMATOCRIT (test code=HCT) 36.1 % 42.0-52.0 MEAN CELL VOLUME (test code=MCV) 94.3 fL 80-98 MEAN CELL HGB (test code=MCH) 31.6 picogram 27.0-33.0 MEAN CELL HGB CONCETRATION (test code=MCHC) 33.5 gram/dL 33.0-36.0 RED CELL DISTRIBUTION WIDTH (test code=RDW) 14.4 % 11.6-16.2 RED CELL DISTRIBUTION WIDTH SD (test code=RDW-SD) 49.6 fL 37.0-51.0 PLATELET COUNT (test code=PLT) 180 K/mm3 150-450 MEAN PLATELET VOLUME (test code=MPV) 9.2 fL 6.7-11.0 NEUTROPHIL % (test code=NT%) 79.7 % 39.0-69.0 IMMATURE GRANULOCYTE % (test code=IG%) 0.4 % 0.0-5.0 LYMPHOCYTE % (test code=LY%) 8.0 % 25.0-55.0 MONOCYTE % (test code=MO%) 11.0 % 0.0-10.0 EOSINOPHIL % (test code=EO%) 0.5 % 0.0-5.0 BASOPHIL % (test code=BA%) 0.4 % 0.0-1.0 NUCLEATED RBC % (test code=NRBC%) 0.0 % 0-0 NEUTROPHIL # (test code=NT#) 5.81 K/mm3 1.8-7.7 IMMATURE GRANULOCYTE # (test code=IG#) 0.03 x10 3/uL 0-0.03 LYMPHOCYTE # (test code=LY#) 0.58 K/mm3 1.0-5.0 MONOCYTE # (test code=MO#) 0.80 K/mm3 0-0.8 EOSINOPHIL # (test code=EO#) 0.04 K/mm3 0.0-0.5 BASOPHIL # (test code=BA#) 0.03 K/mm3 0.0-0.2 NUCLEATED RBC # (test code=NRBC#) 0.00 K/mm3 0.0-0.1 MANUAL DIFF REQUIRED (test code=MDIFF) DIFF NEEDED STAIN ACCEPTABILITY (test code=STN ACCEPTABLE) TOTAL CELLS COUNTED (test code=TCC) #CELLS SEGMENTED NEUTROPHILS (test code=SEG) % 39-69 LYMPHOCYTE (test code=LYMPH) % 25-55 MONOCYTE (test code=MON) % 0-10 MORPHOLOGY COMMENT (test code=MOC) PLATELET ESTIMATE (test code=PLTEST) PLATELET MORPHOLOGY (test code=PLTMORPH) CBC W/MANUAL [id number] 05:35:00* Test Item Value Reference Range Comments WHITE BLOOD CELL (test code=WBC) 7.3 K/mm3 4.5-12.5 RED BLOOD CELL (test code=RBC) 3.83 mill/mm3 4.0-5.8 HEMOGLOBIN (test code=HGB) 12.1 gram/dL 13.0-17.5 HEMATOCRIT (test code=HCT) 36.1 % 42.0-52.0 MEAN CELL VOLUME (test code=MCV) 94.3 fL 80-98 MEAN CELL HGB (test code=MCH) 31.6 picogram 27.0-33.0 MEAN CELL HGB CONCETRATION (test code=MCHC) 33.5 gram/dL 33.0-36.0 RED CELL DISTRIBUTION WIDTH (test code=RDW) 14.4 % 11.6-16.2 RED CELL DISTRIBUTION WIDTH SD (test code=RDW-SD) 49.6 fL 37.0-51.0 PLATELET COUNT (test code=PLT) 180 K/mm3 150-450 MEAN PLATELET VOLUME (test code=MPV) 9.2 fL 6.7-11.0 NEUTROPHIL % (test code=NT%) 79.7 % 39.0-69.0 IMMATURE GRANULOCYTE % (test code=IG%) 0.4 % 0.0-5.0 LYMPHOCYTE % (test code=LY%) 8.0 % 25.0-55.0 MONOCYTE % (test code=MO%) 11.0 % 0.0-10.0 EOSINOPHIL % (test code=EO%) 0.5 % 0.0-5.0 BASOPHIL % (test code=BA%) 0.4 % 0.0-1.0 NUCLEATED RBC % (test code=NRBC%) 0.0 % 0-0 NEUTROPHIL # (test code=NT#) 5.81 K/mm3 1.8-7.7 IMMATURE GRANULOCYTE # (test code=IG#) 0.03 x10 3/uL 0-0.03 LYMPHOCYTE # (test code=LY#) 0.58 K/mm3 1.0-5.0 MONOCYTE # (test code=MO#) 0.80 K/mm3 0-0.8 EOSINOPHIL # (test code=EO#) 0.04 K/mm3 0.0-0.5 BASOPHIL # (test code=BA#) 0.03 K/mm3 0.0-0.2 NUCLEATED RBC # (test code=NRBC#) 0.00 K/mm3 0.0-0.1 MANUAL DIFF REQUIRED (test code=MDIFF) DIFF NEEDED STAIN ACCEPTABILITY (test code=STN ACCEPTABLE) TOTAL CELLS COUNTED (test code=TCC) #CELLS SEGMENTED NEUTROPHILS (test code=SEG) % 39-69 LYMPHOCYTE (test code=LYMPH) % 25-55 MONOCYTE (test code=MON) % 0-10 EOSINOPHIL (test code=EOS) % 0.0-5.0 CABOT RINGS (test code=CAB) MORPHOLOGY COMMENT (test code=MOC) PLATELET ESTIMATE (test code=PLTEST) PLATELET MORPHOLOGY (test code=PLTMORPH) TSH REFLEX TO [id number] 03:40:00* Test Item Value Reference Range Comments TSH REFLEX TO FT4 (test code=TSHREFLEX) 1.8 0.4-5.5 [id number] 00:04:00* Test Item Value Reference Range Comments ALCOHOL (test code=ALC) < 3 mg/dL 0.0-3.0 INTERPRETIVE DATA NOTE: POSITIVE SCREENING RESULTS SHOULD BE CONSIDERED PRESUMPTIVE.WHEN COLLECTED FOR MEDICAL PURPOSES ONLY. SPECIMEN WILL NOTBE COLLECTED BY CHAIN OF CUSTODY.IF A CONFIRMATION OF POSITIVE RESULTS IS DESIRED, ACONFIRMATION TEST MUST BE REQUESTED BY THE PHYSICIAN AT ANADDITIONAL CHARGE TO THE PATIENT. DRUGS OF ABUSE SCREEN [id number] 23:38:00* Test Item Value Reference Range Comments UA PH DIPSTICK (test code=ANDREA) 7.5 5.0-8.0 URN COCAINE (test code=COCAURN) NEGATIVE <300 ng/mL URN CANNABINOIDS (test code=CANNABURN) NEGATIVE <50 ng/mL URN AMPHETAMINE (test code=AMPHETURN) NEGATIVE <1000 ng/mL URN BARBITURATE (test code=BARBITURN) NEGATIVE <200 ng/mL URN BENZODIAZEPINE (test code=BENZOURN) NEGATIVE <200 ng/mL URN OPIATES (test code=OPIATURN) NEGATIVE <300 ng/mL URN PHENCYCLIDINE (PCP) (test code=PHENCURN) NEGATIVE <25 ng/mL URN METHADONE (test code=METHAURN) NEGATIVE <300 ng/mL DRUGS OF ABUSE SCREEN [id number] 23:35:00* Test Item Value Reference Range Comments UA PH DIPSTICK (test code=ANDREA) 5.0-8.0 URN COCAINE (test code=COCAURN) NEGATIVE <300 ng/mL URN CANNABINOIDS (test code=CANNABURN) NEGATIVE <50 ng/mL URN AMPHETAMINE (test code=AMPHETURN) NEGATIVE <1000 ng/mL URN BARBITURATE (test code=BARBITURN) NEGATIVE <200 ng/mL URN BENZODIAZEPINE (test code=BENZOURN) NEGATIVE <200 ng/mL URN OPIATES (test code=OPIATURN) NEGATIVE <300 ng/mL URN PHENCYCLIDINE (PCP) (test code=PHENCURN) NEGATIVE <25 ng/mL URN METHADONE (test code=METHAURN) NEGATIVE <300 ng/mL - CT ABD PELVIS [id number] 23:20:00 Name: BOO MERRITT [facility] : 1945 Age/S: 73 / M [address] [facility] Unit #: [id number] Loc: DINA [place] [address] Phys: Indira Sadler MD Acct: [id number] Dis Date: Status: REG ER PHONE #: [phone] Exam Date: 05/12/2019 2300 FAX #: [phone] Reason: abd pain, rlq EXAMS: CPT CODE: [id number] CT ABD PELVIS W/CONT 14955 Location: H3 CT of the abdomen and CT of the pelvis , 05/12/19 CLINICAL HISTORY: Right lower quadrant pain, predominantly pain, ER presentation COMPARISON EXAM: None of the abdomen or pelvis available TECHNIQUE: A CT scan of the abdomen and pelvis conducted scanning in the axial plane acquiring contiguous 5mm slice thickness from the diaphragms through the pubic symphysis with 75 mL of Isovue 300 injected for contrast. Patient was not given enteric contrast with 2D coronal reformatted images acquired. This was acquired on CT workstation using MPR software . The examination was performed on updated helical CT scanner , utilizing low-dose radiation technique. Automatic exposure control technique was utilized to reduce radiation dose. FINDINGS: The liver demonstrates normal size, attenuation and contour without focal masses or enlargement. The gallbladder is unremarkable. No biliary distention is seen. There is presence of mild splenomegaly with the spleen measuring 13.9 cm in AP dimension by approximately 11 to 12 cm CC dimen tayler by 10 cm in transverse size without splenomegaly. The a drenal glands are unremarkable without masses. The pancreas demon strates normal contour and attenuation without definite focal masses or en largement. There is no effacement of the peripancreatic fat to suggest an inflammatory process. There are no peripancreatic fluid collections. Bowel gas pattern is non obstructed and non specific without pn eumoperitoneum or pneumatosis. There is visualization of a somewhat redu ndant sigmoid colon with diverticulosis. There is associated phlegmonous changes identified adjacent to the sigmoid colon. The sigmoid colon is di splaced somewhat into the right side of the hemipelvis possibly accounting for right-sided pain. The findings are felt to be reflective acute uncom plicated diverticulitis involving the sigmoid colon. Consideration of fol low-up sigmoidoscopy after appropriate treatment may be helpful in excludi ng an underlying PAGE 1 Signed Report (CONTINUED) [facility] 1945 [facility]: 73 [facility] [address] [facility]: [id number] Loc: D[place] [address] Phys: Indira Sadler MD Acct: [id number] Dis Date: Status: REG ER PHONE #: [phone] Exam Date: 05/12/2019 2300 FAX #: [phone] Reason: abd pain, rlq EXAMS: CPT CODE: [id number] CT ABD PELVIS W/CONT 55710 <Continued> process. There is visualization would appears to be likely a normal appendix without acute distress. Both the abdominal aorta and IVC are unremarkable. There is no significant adenopathy within the abdomen. The kidneys demonstrate no hydronephrosis. No fluid co llections are identified. There is presence of a small left- sided pleural effusion. This may be due to fluid overload. No consolidat ion is seen in the lungs. The pelvic contents are unremarkable without mass. No focal fluid collections or adenopathy. IMPRESSION: Findings consistent with acute uncomp licated diverticulitis involving a redundant sigmoid colon with the sigm oid colon displaced somewhat into the right hemipelvis. No CT findings of high concern for appendicitis with visualization of fairly normal-appearing appendix. Small left-sided pleural eff usion possibly due to fluid overload Mild splenomegaly Electronically Sign ed by Brooklyn Perry M.D. on 05/12/2019 at 2320 Reported and signed by: Brooklyn Joshi M.D. PAGE 2 Signed Report (CONTINUED) Name: BOO MERRITT [facility] : 1945 Age[facility]S: 73 [facility] [address] [facility] #: [id number] Loc: DINA [place] [address] Phys: Indira Sadler MD Acct: [id number] Dis Date: Status: REG ER PHONE #: [phone] Exam Date: 05/12/2019 2300 FAX #: [phone] Reason: abd pain, rlq EXAMS: CPT CODE: [id number] ABD PELVIS W/CONT 30489 <Continued> CC: Indira Sadler MD Technologist:RT RAMAN CTDI: DLP: Trnscb Date/Time: 05/12/2019 (634) [email or web address] Orig Print D/T: S: 05/12/2019 (2187) PAGE 3 Signed Report URINALYSIS [id number] 23:07:00* Test Item Value Reference Range Comments UA COLOR (test code=COLU) YELLOW YELLOW UA APPEARANCE (test code=APPU) CLEAR CLEAR UA GLUCOSE DIPSTICK (test code=DGLUU) NEGATIVE mg/dL NEGATIVE UA BILIRUBIN DIPSTICK (test code=BILU) NEGATIVE mg/dL NEGATIVE UA KETONE DIPSTICK (test code=KETU) NEGATIVE mg/dL NEGATIVE UA SPECIFIC GRAVITY (test code=SGU) 1.017 1.001-1.035 UA BLOOD DIPSTICK (test code=SUSIE) Negative mg/dL NEGATIVE UA PH DIPSTICK (test code=ANDREA) 7.5 5.0-8.0 UA PROTEIN DIPSTICK (test code=PROU) NEGATIVE mg/dL NEGATIVE UA UROBILINIOGEN DIPSTICK (test code=URO) Normal mg/dL NEGATIVE UA NITRITE DIPSTICK (test code=RONNIE) NEGATIVE NEGATIVE UA LEUKOCYTE ESTERASE W REFLEX (test code=LEUUR) NEGATIVE Jose/uL NEGATIVE UA WBC (test code=WBCU) per HPF 0-5 UA RBC (test code=RBCU) per HPF 0-5 UA EPITHELIAL CELLS (test code=EPIU) per HPF Few UA BACTERIA (test code=BACU) per HPF NONE Urine Source? Clean CatchURINALYSIS [id number] 23:07:00* Test Item Value Reference Range Comments UA COLOR (test code=COLU) YELLOW YELLOW UA APPEARANCE (test code=APPU) CLEAR CLEAR UA GLUCOSE DIPSTICK (test code=DGLUU) NEGATIVE mg/dL NEGATIVE UA BILIRUBIN DIPSTICK (test code=BILU) NEGATIVE mg/dL NEGATIVE UA KETONE DIPSTICK (test code=KETU) NEGATIVE mg/dL NEGATIVE UA SPECIFIC GRAVITY (test code=SGU) 1.017 1.001-1.035 UA BLOOD DIPSTICK (test code=SUSIE) Negative mg/dL NEGATIVE UA PH DIPSTICK (test code=ANDREA) 7.5 5.0-8.0 UA PROTEIN DIPSTICK (test code=PROU) NEGATIVE mg/dL NEGATIVE UA UROBILINIOGEN DIPSTICK (test code=URO) Normal mg/dL NEGATIVE UA NITRITE DIPSTICK (test code=RONNIE) NEGATIVE NEGATIVE UA LEUKOCYTE ESTERASE W REFLEX (test code=LEUUR) NEGATIVE Jose/uL NEGATIVE UA WBC (test code=WBCU) 0-5 per HPF 0-5 UA RBC (test code=RBCU) 6-10 #/HPF 0-5 UA EPITHELIAL CELLS (test code=EPIU) FEW per HPF FEW UA BACTERIA (test code=BACU) FEW #/HPF NONE UA MUCUS (test code=MUCU) FEW #/LPF FEW Urine Source? Clean CatchBASIC METABOLIC [id number] 22:48:00* Test Item Value Reference Range Comments SODIUM (test code=NA) 134 mmol/L 136-145 POTASSIUM (test code=K) 4.3 mmol/L 3.5-5.1 CHLORIDE (test code=CL) 99.0 mmol/L 98-107 CARBON DIOXIDE (test code=CO2) 24.0 mmol/L 21-32 ANION GAP (test code=GAP) 15.3 10-20 GLUCOSE (test code=GLU) 85 mg/dL 74-106 BLOOD UREA NITROGEN (test code=BUN) 17 mg/dL 7-18 GLOMERULAR FILTRATION RATE (test code=GFR) 59 mL/min >=60 Estimated GFR by using Modified MDRD formula.Chronic kidney disease is defined as either kidney damageor GFR <60 mL/min/1.73 m2 for >3 months. CREATININE (test code=CREAT) 1.20 mg/dL 0.7-1.3 BUN/CREATININE RATIO (test code=BUN/CREA) 14.2 10-20 CALCIUM (test code=CA) 9.5 mg/dL 8.5-10.1 HEPATIC FUNCTION [id number] 22:48:00* Test Item Value Reference Range Comments TOTAL PROTEIN (test code=PROT) 8.4 gram/dL 6.4-8.2 ALBUMIN (test code=ALB) 3.3 g/dL 3.4-5.0 GLOBULIN (test code=GLOB) 5.1 gram/dL 2.7-4.2 ALBUMIN/GLOBULIN RATIO (test code=A/G) 0.7 0.75-1.50 BILIRUBIN TOTAL (test code=BILT) 0.80 mg/dL 0.0-1.0 BILIRUBIN DIRECT (test code=BILD) 0.37 mg/dL 0.0-0.20 SGOT/AST (test code=AST) 41 IUnit/L 15-37 SGPT/ALT (test code=ALT) 24 IUnit/L 12-78 ALKALINE PHOSPHATASE TOTAL (test code=ALKP) 76 IUnit/L 45-117 Note change in reference range due to change in reagent. [id number] 22:48:00* Test Item Value Reference Range Comments LIPASE (test code=LIP) 160 U/L 73.0-393.0 [id number] 22:48:00* Test Item Value Reference Range Comments TROPONIN-I (test code=TROPI) <0.015 ng/mL 0-0.045 [id number] 22:44:00* Test Item Value Reference Range Comments AMMONIA (test code=AMM) 21 umol/L 11-32 PROTHROMBIN [id number] 22:41:00* Test Item Value Reference Range Comments PROTHROMBIN TIME PATIENT (test code=PTP) 12.7 seconds 9.0-14.0 INTERNATIONAL NORMAL RATIO (test code=INR) 1.1 0.8-1.2 The therapeutic range for oral anticoagulant therapy formost indications is an international normalized ratio (INR)of between 2.0 and 3.0. The recommended therapeutic INRrange for various clinical situations is listed below: Clinical Situation INR range Pulmonary e mbolism treatment (2.0-3.0)Venous thrombosis treatmentVenous thrombosis prophylaxis (high risk surgery)Prevention of systemic embolism from: Acute myocardial infarction Valvular heart disease Atrial fibrillation Mechanical prosthetic heart valves (2.5-3.5) IS PATIENT ON ANTICOAGULANTS? N- XR CHEST 1 [id number] 22:39:00 FAX: Indira Ingram [phone] [place]: St: REG Name: Lexx BAILEYBOO HAN [facility] : [birth year] Age/S: 73/M [address] [facility] Unit #: [id number] Loc: DINA [place] [address] Phys: Indira Sadler MD Acct: [id number] Dis Date: Status: REG ER PHONE #: [phone] Exam Date: 05/12/20192229 FAX #: [phone] Reason: ABDOMINAL PAIN EXAMS: CPT CODE: [id number] XR CHEST 1 V 31282 Location: CHEST X- RAY: AP frontal film of the chest, 05/12/19 CLINICAL HISTORY: Ab dominal pain COMPARISON EXAMS: Chest x-ray exam conducted 04/15/10 FINDINGS: Heart, lungs, and mediastinal structures are within normal limits. No evolving process or pleural based finding. No active CHF or pneumonia. No abnormal air collection. I MPRESSION: No acute finding at 2239 Re ported and signed by: Brooklyn Perry M.D. CC: Indira Paz MD Technologist: RT SEVERIANO (R) Trnscrd Date/Time/By: 05/12/2019 (2238) : Mikal y: [email or web address] Orig Print D/T: S: 05/12/2019 (0566) PAGE 1 Signed Report BASIC METABOLIC [id number] 22:38:00* Test Item Value Reference Range Comments SODIUM (test code=NA) 134 mmol/L 136-145 POTASSIUM (test code=K) 4.3 mmol/L 3.5-5.1 CHLORIDE (test code=CL) 99.0 mmol/L 98-107 CARBON DIOXIDE (test code=CO2) mmol/L 21-32 ANION GAP (test code=GAP) 10-20 GLUCOSE (test code=GLU) mg/dL 74-106 BLOOD UREA NITROGEN (test code=BUN) mg/dL 7-18 GLOMERULAR FILTRATION RATE (test code=GFR) mL/min >=60 CREATININE (test code=CREAT) mg/dL 0.7-1.3 BUN/CREATININE RATIO (test code=BUN/CREA) 10-20 CALCIUM (test code=CA) mg/dL 8.5-10.1 HEPATIC FUNCTION [id number] 22:38:00* Test Item Value Reference Range Comments TOTAL PROTEIN (test code=PROT) gram/dL 6.4-8.2 ALBUMIN (test code=ALB) g/dL 3.4-5.0 GLOBULIN (test code=GLOB) gram/dL 2.7-4.2 ALBUMIN/GLOBULIN RATIO (test code=A/G) 0.75-1.50 BILIRUBIN TOTAL (test code=BILT) mg/dL 0.0-1.0 BILIRUBIN DIRECT (test code=BILD) mg/dL 0.0-0.20 SGOT/AST (test code=AST) IUnit/L 15-37 SGPT/ALT (test code=ALT) IUnit/L 12-78 ALKALINE PHOSPHATASE TOTAL (test code=ALKP) IUnit/L 45-117 [id number] 22:38:00* Test Item Value Reference Range Comments LIPASE (test code=LIP) U/L 73.0-393.0 [id number] 22:38:00* Test Item Value Reference Range Comments TROPONIN-I (test code=TROPI) ng/mL 0-0.045 CBC W/O [id number] 22:32:00* Test Item Value Reference Range Comments WHITE BLOOD CELL (test code=WBC) 8.8 K/mm3 4.5-12.5 RED BLOOD CELL (test code=RBC) 4.36 mill/mm3 4.0-5.8 HEMOGLOBIN (test code=HGB) 13.9 gram/dL 13.0-17.5 HEMATOCRIT (test code=HCT) 41.3 % 42.0-52.0 MEAN CELL VOLUME (test code=MCV) 94.7 fL 80-98 MEAN CELL HGB (test code=MCH) 31.9 picogram 27.0-33.0 MEAN CELL HGB CONCETRATION (test code=MCHC) 33.7 gram/dL 33.0-36.0 RED CELL DISTRIBUTION WIDTH (test code=RDW) 14.2 % 11.6-16.2 PLATELET COUNT (test code=PLT) 225 K/mm3 150-450 MEAN PLATELET VOLUME (test code=MPV) 9.0 fL 6.7-11.0 CBC W/O [id number] 22:30:00* Test Item Value Reference Range Comments WHITE BLOOD CELL (test code=WBC) K/mm3 4.5-12.5 RED BLOOD CELL (test code=RBC) mill/mm3 4.0-5.8 HEMOGLOBIN (test code=HGB) 13.9 gram/dL 13.0-17.5 HEMATOCRIT (test code=HCT) % 42.0-52.0 MEAN CELL VOLUME (test code=MCV) fL 80-98 MEAN CELL HGB (test code=MCH) picogram 27.0-33.0 MEAN CELL HGB CONCETRATION (test code=MCHC) gram/dL 33.0-36.0 RED CELL DISTRIBUTION WIDTH (test code=RDW) % 11.6-16.2 PLATELET COUNT (test code=PLT) K/mm3 150-450 MEAN PLATELET VOLUME (test code=MPV) fL 6.7-11.0 - CT HEAD/BRAIN W/O [id number] 21:58:00 Name: BOO MERRITT [facility] : 1945 Age/S: 73 / M [address] [facility] Unit #: [id number] Loc: DINA [place] [address] Phys: Indira Sadler MD Acct: [id number] Dis Date: Status: PRE ER PHONE #: [phone] Exam Date: 05/12/20192151 FAX #: [phone] Reason: confusion EXAMS: CPT CODE: [id number] CT HEAD/BRAIN W/O CONT 48703 HISTORY: Back pain and confusion. No prior films available for comparison. Location: TH. CT brain without contrast: Automated exposure control. No acute intracranial bleeds or extra-axial collections are noted. No acute territorial vascular infarction is noted. The sulci, gyri, ventricles and subarachnoid spaces and the basilar cisterns are normal for patient's age. No herniation or hydrocephalus or midline shift is noted. Mild periventricular ischemic gliosis is noted. Age-appropriate atrophy is noted as well. Portions of the visualized paranasal sinuses demonstrated left ethmoid sinusitis. No obvious bony calvarial defect is noted. IMPRESSION: No acute intracranial bleeds or extra-axial collections. No acute territorial vascular infarction. No herniation or hyd rocephalus or midline shift. Chronic white matter ischemic di sease and atrophy . at 2158 Reported and signed by: Mehran Taylor M.D. CC: Indira Sadler MD Technologist:Astrid Martel RT(R); MOSES Cifuentes CTDI: DLP: Gutierrez nscb Date/Time: 05/12/2019 (2157) [email or web address] Orig Print D/ T: S: 05/12/2019 (9951) PAGE 1 Signed Report
[2019-05-20 21:10] LABS: CLARITY,URINE SL CLOUDY (CLEAR); COLOR,URINE ORANGE (YELLOW); LEUKOCYTE ESTERASE ,URINE NEGATIVE (NEGATIVE); NITRITE,URINE POSITIVE (NEGATIVE); PROTEIN,URINE DIPSTICK 2+ (NEGATIVE)
[2019-05-20 21:11] LABS: BILIRUBIN,URINE MODERATE (NEGATIVE); KETONES,URINE 1+ (NEGATIVE); URINE UROBILINOGEN 1 mg/dL (0.2 - 1)
[2019-05-20 21:22] LABS: BASOPHILS # (AUTO) 0.1 (0.0-0.1); BASOPHILS % 0.9 % (0.0-1.0); EOSINOPHILS # (AUTO) 0.1 (0.0-0.4); HEMATOCRIT 31.4 % (38.2-49.6); HEMOGLOBIN 10.8 g/dL (14.0-18.0); LYMPHOCYTES # (AUTO) 1.2 (1.0-3.2); LYMPHOCYTES % 10.7 % (18.0-39.1); MEAN CORPUSCULAR HGB CONC 34.4 g/dL (31-35); MEAN CORPUSCULAR VOLUME 92.9 fL (81-99); MONOCYTES # (AUTO) 0.7 (0.2-0.8); MONOCYTES % 5.8 % (4.4-11.3); NEUTROPHILS # (AUTO) 8.1 (2.1-6.9); NEUTROPHILS % 69.9 % (38.7-80.0); PLATELET COUNT 390 x10e3/uL (140-360); RED BLOOD COUNT 3.38 x10e6/uL (4.3-5.7); RED CELL DISTRIBUTION WIDTH 15.4 % (11.7-14.4)
[2019-05-20 21:36] LABS: ALANINE AMINOTRANSFERASE 18 IU/L (0-55); ALBUMIN 2.2 g/dL (3.5-5.0); ALBUMIN/GLOBULIN RATIO 0.5 (0.8-2.0); ALKALINE PHOSPHATASE 177 IU/L (40-150); ANION GAP 16.9 mmol/L (8-16); BLOOD UREA NITROGEN 11 mg/dL (7-26); BUN/CREATININE RATIO 15 (6-25); CALCIUM 8.4 mg/dL (8.4-10.2); CARBON DIOXIDE 21 mmol/L (22-29); CHLORIDE 100 mmol/L (98-107); CREATININE, SERUM 0.72 mg/dL (0.72-1.25); EST GLOMERULAR FILTRATION RATE > 60 ML/MIN (60-); GLUCOSE 118 mg/dL (74-118); POTASSIUM 3.9 mmol/L (3.5-5.1); SODIUM 134 mmol/L (136-145)
[2019-05-20 21:38] LABS: BACTERIA,URINE RARE /HPF; EPITHELIAL CELLS,URINE FEW /LPF
[2019-05-20 21:48] LABS: AMYLASE 98 U/L (25-125); LIPASE 269 U/L (8-78)
--- NOTE | 2019-05-20 23:08 | Diagnostic Imaging Report ---
CT chest, abdomen and pelvis with intravenous contrast Indication: Abdominal pain, cough, ^COUGH Technique: Thin collimation axial images obtained from the lung bases to the level of the pubic symphysis following the uneventful administration of 100 cc of low osmolar, nonionic intravenous contrast. Images of the chest were performed from the apices through the adrenal glands after the CT of the abdomen. RADIATION DOSE: Total DLP: 436.13 mGy*cm Estimated effective dose: (DLP x 0.015 x size factor) mSv CTDIvol has been reviewed. It is below the limits set by the Radiation Protocol Committee (RPC). Dose reduction techniques used: Automated exposure control, adjustment of the mAs and/or kVp according to patient size, standardized low-dose protocol, and/or iterative reconstruction technique. Comparison: None. CHEST FINDINGS: Lymph nodes: Mildly prominent axillary lymph nodes. Left supraclavicular lymph node measures 0.9 x 1.3 cm. Lymph node in the AP window measures 1.3 cm. Subcarinal lymph node measures 1.1 cm. No hilar lymphadenopathy Thyroid: Diminutive but normal. Mediastinum: The entire esophagus is dilated with fluid with circumferential mural thickening. There is a small hiatal hernia. The heart is enlarged with heavy calcifications of the coronary arteries and mitral valve. No filling defects in the great vessels. Thin pericardial effusion versus pericardial thickening. Lungs: Right Lung: Mild burden of paraseptal emphysema. Diffuse hyperinflation. Inferior middle lobe and lower lobe atelectasis. No mass in the aerated lung. Left Lung: Diffuse hyperinflation. Mild burden of paraseptal emphysema. Atelectasis in the posterior costophrenic angle. Pleura: Posterior layering right pleural effusion measures 2.5 cm. Trace posterior layering left pleural effusion. No enhancement of the visceral or parietal pleura. ABDOMEN FINDINGS: Liver: The right lobe measures 17 cm in length. No mass. Gallbladder: Present and is distended. No calculi or mural thickening. Biliary tree: No intrahepatic or hepatic bile duct dilatation Pancreas: Normal attenuation without mass or ductal dilatation. Spleen: Measures 15 cm in length and contains several basilar calcifications. No soft tissue mass. Adrenal Glands: No evidence for mass. Kidneys: Right: Normal enhancement. Fullness of the renal pelvis without calyceal dilatation. No mass. Left: Normal enhancement. Low attenuating lesion in the interpolar cortex measures 12 mm and is suggestive of a cyst. No hydronephrosis. Lymph Nodes: No enlarged abdominal or perirectal lymph nodes. Aorta: Normal in diameter with scattered calcifications. IVC: Patent and normal in morphology. Portal vein: Patent and normal in morphology. No intraluminal air. PELVIS FINDINGS: Bowel: Stomach: Dilated with fluid. No abnormal mural thickening. Small Bowel: The duodenum and proximal jejunum are dilated with fluid. The jejunum measures 4.8 cm in diameter. The transition point is in the midabdomen to the left of midline (coronal image 39). An intraluminal mass cannot be entirely excluded. The remainder of the small bowel is normal in diameter with normal wall thickness. There is mild hyperemia of the terminal ileum. Large Bowel: The cecum is distended with fluid. The john of the cecum and right colon are hyperemic. There is semisolid stool extending from the hepatic flexure to the rectum. There is a stool and air containing outpouching anterior to the rectum measuring 7.0 x 4.3 cm in the AP and craniocaudal dimensions. This is adjacent to a loculated fluid collection described below. Appendix: There is no evidence of a normal appendix. However, the right lower quadrant contains an air and fluid containing loculated collection measuring 7.0 x 5.2 cm. Medial to this are several droplets of air. A loculated fluid collection inferior to the cecum measures 3.6 x 4.4 cm in the axial plane. Bladder: Circumferential mural thickening. No intraluminal air. Prostate: Normal morphology. No significant enlargement. Peritoneum/retroperitoneum: Peritoneal inflammation along the right hemiabdomen particular the right lower quadrant. There is a small amount of ascites in a left inguinal hernia. Mild burden of presacral edema. There is free air in the peritoneum in the lower left hemiabdomen (coronal image 43, axial image 64). Bones: Mild degenerative changes of the spine. No focal osseous lesions. Soft tissues: Diffuse subcutaneous edema. Small left internal hernia containing ascites. IMPRESSION: 1. Nonvisualization of the appendix. Loculated fluid collections in the right lower quadrant suggestive of abscesses. Pneumoperitoneum. Findings are concerning for perforated appendicitis. If the appendix has been removed, bowel perforation should be considered. Reactive inflammation of the right colon and terminal ileum. 2. High-grade partial small bowel obstruction in the upper abdomen resulting in gastric dilatation and diffuse esophageal distention with fluid. 3. Large stool and air containing collection anterior to the rectum. This may represent a large sigmoid diverticulum or portions of a redundant sigmoid colon. Rectal contrast would be needed for clarification. 4. Splenomegaly. Mild hepatomegaly. 5. Small pleural effusions. Bibasilar atelectasis. 6. Circumferential mural thickening of the urinary bladder may be reactive from right lower quadrant inflammation. Signed by: Dr. Abdullahi Villar MD on 05/20/2019 11:05 PM
[2019-05-20] MEDS ORDERED: PIPER-TAZ 3.375 GM / NS 50ML IV SCH (23:30)
[2019-05-20] MEDS ORDERED: MORPHINE SULFATE 2 MG/ML SYR 1ML IV PRN (23:30)
[2019-05-20] MEDS: ONDANSETRON HCL INJ 2MG/ML 2ML 2 MG/ML VIAL IV PRN (23:54)
[2019-05-21] VITALS (11 sets, daily range): BP systolic 134–167; BP diastolic 68–97
[2019-05-21] MEDS ORDERED: SODIUM CHLORIDE 0.9% 1000ML 1,000 ML IV ONE (00:30)
[2019-05-21] MEDS ORDERED: LOSARTAN-HCTZ1 EAC1 PO (00:51)
[2019-05-21] MEDS ORDERED: HYDRALAZINE HC100 MG PO (00:51)
[2019-05-21] MEDS ORDERED: LEVOTHYROXINE75 MCG PO (00:51)
[2019-05-21] MEDS ORDERED: CYCLOBENZAPRINE10 MG PO (00:51)
[2019-05-21] MEDS ORDERED: VALACYCLOVIR1000 MG PO (00:51)
[2019-05-21] MEDS ORDERED: TIZANIDINE HCL4 MG PO (00:51)
[2019-05-21] MEDS ORDERED: FENOFIBRATE160 MG PO (00:51)
[2019-05-21] MEDS ORDERED: BUPROPION HCL200 MG PO (00:51)
[2019-05-21] MEDS ORDERED: BETAMETHASONE D15 G2 TOP (00:51)
[2019-05-21] MEDS ORDERED: AZELASTINE137 MCG/0. NS (00:51)
[2019-05-21] MEDS ORDERED: DICLOFENAC POTA50 MG PO (00:51)
[2019-05-21] MEDS ORDERED: OMEPRAZOLE20 MG PO (00:51)
[2019-05-21] MEDS ORDERED: METOPROLOL SUC200 MG PO (00:51)
[2019-05-21] MEDS ORDERED: FLUTICASONE PRO16 GM (00:51)
--- NOTE | 2019-05-21 01:20 | NUR ---
Received patient from the ED via stretcher. Patient is alert. NGT in place to left nares to LIWS. IV patent at right AC 20 gauge with on going fluids and antibiotics. Gown changed. Patient oriented to room. Call light within reached.
[2019-05-21] MEDS ORDERED: IOPAMIDOL 370 MG/ML 200 ML INFUS..BTL INJ ONE (02:14)
[2019-05-21] MEDS ORDERED: SODIUM CHLORIDE 0.9% 50ML 50 ML ONE (02:14)
[2019-05-21] MEDS: METRONIDAZOLE 500MG/NS 100ML 100 ML IV SCH ×5 (02:17→20:29)
[2019-05-21] MEDS: SODIUM CHLORIDE 0.9% 1000ML 1,000 ML IV SCH ×2 (03:57→07:29)
[2019-05-21 05:19] LABS: BASOPHILS % 0.3 % (0.0-1.0); EOSINOPHILS # (AUTO) 0.1 (0.0-0.4); HEMATOCRIT 31.5 % (38.2-49.6); LYMPHOCYTES % 8.9 % (18.0-39.1); MEAN CORPUSCULAR HEMOGLOBIN 31.9 pg (28-32); MEAN CORPUSCULAR HGB CONC 34.9 g/dL (31-35); MEAN CORPUSCULAR VOLUME 91.3 fL (81-99); MONOCYTES # (AUTO) 0.7 (0.2-0.8); MONOCYTES % 5.8 % (4.4-11.3); NEUTROPHILS # (AUTO) 8.5 (2.1-6.9); PLATELET COUNT 363 x10e3/uL (140-360); RED BLOOD COUNT 3.45 x10e6/uL (4.3-5.7); RED CELL DISTRIBUTION WIDTH 15.3 % (11.7-14.4)
[2019-05-21 05:48] LABS: AMYLASE 92 U/L (25-125); ANION GAP 14.2 mmol/L (8-16); BLOOD UREA NITROGEN 9 mg/dL (7-26); BUN/CREATININE RATIO 15 (6-25); CALCIUM 8.2 mg/dL (8.4-10.2); CARBON DIOXIDE 24 mmol/L (22-29); CHLORIDE 103 mmol/L (98-107); EST GLOMERULAR FILTRATION RATE > 60 ML/MIN (60-); GLUCOSE 111 mg/dL (74-118); LIPASE 243 U/L (8-78); POTASSIUM 3.2 mmol/L (3.5-5.1); SODIUM 138 mmol/L (136-145)
--- NOTE | 2019-05-21 07:03 | Consultation ---
DATE OF CONSULTATION: 05/21/2019 HISTORY OF PRESENT ILLNESS: The patient is a 73-year-old male, presents with complaints of abdominal pain, apparently was hospitalized at another hospital up until a few days ago with diverticulitis. He was sent home, but then pain recurred. In the emergency room where he was evaluated, CT of the abdomen and pelvis, which revealed free intraperitoneal air with multiple abscesses, possible appendicitis or possible diverticulitis as well as findings suggestive of small bowel obstruction. The patient says he is not passing any flatus. He has associated nausea and vomiting. PAST MEDICAL HISTORY: Significant for hypertension, previous diverticulitis. MEDICATIONS: He says there were no home medications. ALLERGIES: HE HAS NO KNOWN ALLERGIES. PAST SURGICAL HISTORY: He has not had previous abdominal surgery. FAMILY HISTORY: Noncontributory. SOCIAL HISTORY: The patient does not smoke cigarettes. Occasionally he drinks wine. REVIEW OF SYSTEMS: As stated above, otherwise was negative. PHYSICAL EXAMINATION: GENERAL: The patient is awake and alert. VITAL SIGNS: Reveal heart rate around 120, blood pressure is normal. HEENT: The sclerae is not icteric. NECK: Has no masses. LUNGS: Equal breath sounds, are clear bilaterally. CARDIAC: Regular rate and rhythm with no murmur. ABDOMEN: Mildly distended. There is diffuse tenderness with diffuse signs of peritonitis. There is no mass. EXTREMITIES: Have no edema. NEUROLOGIC: Grossly intact. LABORATORY TESTS: White blood count 11.5 with a left shift differential, hemoglobin and hematocrit are 11 and 31. Chemistries are essentially normal. ASSESSMENT: A 73-year-old male with probable perforated colon with generalized peritonitis, likely it is very well maybe due to diverticulitis, appendicitis is possible, but seems less likely. With these symptoms, he will need surgery today. PLAN: Laparotomy with drainage of intraabdominal abscesses, probable partial colon resection with colostomy, possible appendectomy, also small bowel obstruction, and hope likely secondary to inflammation and treat this also. Procedure was explained to the patient including risks, benefits, and alternatives. He understands. He has had opportunity to ask questions. He is aware of the possible need for colostomy. Thank you for asking me to see Mr. Randolph. MD NORMA Hassan/TREMAINE /[id number]
--- NOTE | 2019-05-21 07:24 | NUR ---
ASSUMED CARE. PT AWAKE AND ALERT. ACYANOTIC. RESTING IN BED WITH NGT TO LEFT NARE SET TO LIS. NO DISTRESS NOTED. CALL LIGHT IN REACH. SIDERAILS UP X2. BED ALARM SET.
[2019-05-21] MEDS ORDERED: FENTANYL CITRATE/PF 100MCG/2 ML INJ ONE ×2 (09:29→10:24)
[2019-05-21] MEDS ORDERED: MIDAZOLAM HCL 2 MG/2 ML VIAL ONE (09:29)
--- NOTE | 2019-05-21 09:50 | NUR ---
PT AWAKE AND ALERT. ACYANOTIC. TRANFERRED BY OR STAFF FROM UNIT TO OR FOR SCHEDULED SURGERY. NO DISTRESS NOTED.
[2019-05-21] MEDS ORDERED: ACETAMINOPHEN 1000 MG/100 ML 100 ML IV ONE (10:24)
[2019-05-21] MEDS ORDERED: POTASSIUM CHLORIDE 20MEQ/100ML 100 ML IV PRN (10:45)
[2019-05-21] MEDS ORDERED: SUGAMMADEX SODIUM 200 MG/2 ML VIAL IV ONE (10:51)
[2019-05-21] MEDS ORDERED: ONDANSETRON HCL INJ 2MG/ML 2ML 2 MG/ML VIAL IV PRN (11:15)
[2019-05-21] MEDS ORDERED: HYDROMORPHONE 2MG/ML 2 MG/ML ML ONE (11:33)
--- NOTE | 2019-05-21 11:56 | NUR ---
PATIENT REPORT RECIEVED BY CARMELINA AYALA AT APPROXIMATELY 1130.
[2019-05-21] MEDS: PIPER-TAZ 3.375 GM / NS 50ML IV SCH ×2 (11:59→17:28)
--- NOTE | 2019-05-21 12:49 | Operative Report ---
DATE OF PROCEDURE: 05/21/2019 SURGEON: Geoff Su MD PREOPERATIVE DIAGNOSES: Perforated colon with pelvic abscess and generalized peritonitis. POSTOPERATIVE DIAGNOSES: Perforated colon with pelvic abscess secondary to fecal peritonitis. PROCEDURE: Exploratory laparotomy, sigmoid colon resection with end colostomy, drainage of pelvic abscess. ORGANIC PREPARATION TECHNICIAN: None. ANESTHESIA: General endotracheal. INDICATIONS AND FINDINGS: The patient is a 73-year-old male, presenting with complaints of abdominal pain. He was hospitalized at another hospital with diverticulitis. Workup revealed probable perforated colon with pelvic abscess. At Surgery, the patient was found to have perforation of the colon in the distal sigmoid with fecal peritonitis with fecal material throughout the lower abdomen with considerable inflammation and purulent fluid. There was abscess cavity with purulent fluid and fecal material to the right of the colon in the upper pelvis with purulent fluid in the upper abdomen also, but the fecal material confined to the lower abdomen. TECHNIQUE: After adequate general endotracheal anesthesia, the patient in supine position, the abdomen was prepped and draped in sterile fashion with ChloraPrep solution. A lower midline incision was made. The peritoneal cavity was entered. There was adherent omentum in the lower abdomen. There was some fecal material seen and sample taken for culture and sensitivity. The omentum was freed from the lower abdomen from the sigmoid colon. There were some adhesions which were lysed. The small bowel did not appear inflamed. The colon had a stool within it. There was a large amount of fecal material and as the colon was mobilized, there was abscess cavity to the right of the colon in the pelvis with fecal material and this was all removed. The colon was mobilized by dividing peritoneal attachments. Care was taken not to injure the left ureter , mobilized all the way down to the area of the perforation which was found to be in the distal sigmoid colon. The perforation that was about 1 cm in diameter with fecal material coming from the colon. were appeared soft, not inflamed, was divided with a ELIECER stapler. The mesentery was divided with LigaSure device and the colon was free below the area of the perforation. This was just above the rectosigmoid colon and the specimen was removed. The distal colon which was closed was marked with long sutures of 3-0 Prolene. The peritoneal cavity and pelvis irrigated with large volume of warm saline until the aspirate was clear. A peoria of skin was then removed from the left side of the abdomen and this carried down through subcutaneous tissue until the fascia was seen. The fascia was opened in cruciate fashion. Muscle fiber was split and posterior fascia was opened and entered the peritoneal cavity, the proximal colon was then delivered up through this wound to be mature the colostomy. The peritoneal cavity was irrigated further with saline, inspected for hemostasis, which was seen to be adequate. The midline fascia was closed with running suture of #1 PDS. Subcutaneous tissue was irrigated with saline, then dressed open with saline moistened gauze, and sterile dressings applied to this area. The end of the colon at the colostomy site was then opened and sutures taken the skin to the full-thickness of the colon with interrupted sutures of 3-0 Vicryl to mature the colostomy. Colostomy appliance was then applied. The patient tolerated the procedure well. Estimated blood loss was 125 mL. There were no complications. All counts were correct. The patient was taken to the recovery room in satisfactory condition. MD NORMA Hassan/BRISSAL /[id number] cc: MD Jian Crews
[2019-05-21] MEDS: DEXTROSE 5%/LACTATED RINGERS 1,000 ML IV SCH ×2 (13:04→19:40)
[2019-05-21] MEDS: SODIUM CHLORIDE 0.9% 250ML IRRIG IR SCH ×4 (13:04→23:19)
--- NOTE | 2019-05-21 13:27 | NUR ---
patient received from PACU via bed. see shift assess. NGT to left nare to low int sx with green output. ML abdomen dressing dry and intact. vitals stable with no distress. SCD's in plave. IVF infusing well. no distress at this time.
--- NOTE | 2019-05-21 13:51 | NUR ---
PT LIVES INDEPENDENTLY AT HOME WITH HIS . HE IS RETIRED EMERGENCY CONTACT: : ALEK MERRITT [phone] PCP: LUZMA MELARA DC PLAN: RETURN HOME TO . MAY NEED HOME HEALTH PENDING MEDICAL OUTCOME
[2019-05-21] MEDS ORDERED: SEVOFLURANE INHAL SOLN 250 ML PEN BTL ONE (13:57)
[2019-05-21] MEDS ORDERED: ROCURONIUM BROMIDE 10 MG/ML 5ML VIAL IV ONE (13:57)
[2019-05-21] MEDS ORDERED: DEXAMETHASONE SOD PHOS INJ 4 MG/ML VIAL ONE (13:57)
[2019-05-21] MEDS ORDERED: ONDANSETRON HCL INJ 2MG/ML 2ML 2 MG/ML VIAL ONE (13:57)
[2019-05-21] MEDS ORDERED: ACETAMINOPHEN 1000 MG/100 ML IV ONE (13:57)
[2019-05-21] MEDS ORDERED: LIDOCAINE HCL 2% LOCAL INJ 5 ML SDV VIAL INJ ONE (13:57)
[2019-05-21] MEDS ORDERED: PROPOFOL IV EMULSION 10 MG/ML 20 ML VIAL ONE (13:57)
--- NOTE | 2019-05-21 13:59 | Consultation ---
DATE OF CONSULTATION: Pulmonary Critical Care Consultation REASON FOR CONSULTATION: Postoperative management. HISTORY OF PRESENT ILLNESS: Mr. Randolph is a 73-year-old male, who presented to the emergency room with complaints of abdominal pain, mostly right lower quadrant that has been going on for the last few days here. He was discharged from [facility] yesterday that he was admitted for diverticulitis. The pain was 6/10 in intensity, progressively got worse. It was associated with loss of appetite. He also had a low-grade fever in the emergency room. The patient underwent a CT of abdomen and pelvis, which showed possible abscess in the right lower quadrant and a high-grade partial small-bowel obstruction, large stool and air containing collection anterior to the rectum. He was taken to the OR by Dr. Su, and the patient underwent colostomy along with drainage of abscess. The wound was kept open. The patient had perforated colon with pelvic abscess secondary to fecal peritonitis. IV antibiotics were started and the patient was transferred to [facility]. He does not smoke and does not drink. REVIEW OF SYSTEMS: GENERAL: Denies any fever or chills. HEAD: Denies any head trauma. ENT: Denies any earache. CVS: Denies any chest pain. RESPIRATORY: Denies any shortness of breath. The rest of the review of systems are negative except as in HPI. PAST MEDICAL HISTORY: Hypothyroidism and hypertension. FAMILY AND SOCIAL HISTORY: He does not smoke, does not drink. PHYSICAL EXAMINATION: VITAL SIGNS: Temperature 100.8, pulse of 101, and blood pressure 140/77. CHEST: Clear to auscultation bilaterally. HEART: S1, S2, audible. ABDOMEN: There is a surgical dressing on the open wound and there is colostomy. EXTREMITIES: No pedal edema. NEUROLOGIC: Awake and alert. LABORATORY DATA: White count of 11,000, hemoglobin 11.8, and platelets 363. Chemistries within normal limits. IMAGING DATA: CTA of abdomen and pelvis films reviewed and x-ray report reviewed. ASSESSMENT/PLAN: Mr. Randolph is a 73-year-old male, who is status post laparotomy for perforated abscess and fecal peritonitis. The patient is improving. Continue the patient on IV antibiotics. Oxygen as needed to keep the O2 saturation more than or equal to 92%. IV analgesics for pain control. Continue the patient on Pepcid as ordered. IV fluids. Thank you for this consult. MD BRENDA Abarca/TREMAINE /[id number]
[2019-05-21] MEDS: ONDANSETRON HCL INJ 2MG/ML 2ML 2 MG/ML VIAL IV PRN (16:22)
[2019-05-21] MEDS ORDERED: FAMOTIDINE 20 MG/2 ML VIAL IV SCH (17:00)
[2019-05-21] MEDS: ACETAMINOPHEN 1000 MG/100 ML IV PRN ×2 (19:03→19:40)
[2019-05-21] MEDS: METOPROLOL TARTRATE INJ 1 MG/ML VIAL IV PRN (19:03)
--- NOTE | 2019-05-21 19:34 | NUR ---
PATIENT RECEIVED IN BED C/O PAIN TO TOUCH ALL OVER BODY. PT V/S ARE 138 HR, 96% O2, 30R, BP 149/87 AND TEMP 103.1. ADMINISTERED ORDERED TYLENOL AND METOPROLOL THEN CALLED DR. KANG AND DR HEMPHILL TO NOTIFY OF CHANGE IN CONDITION. DR HEMPHILL CALLED BACK ORDERED STAT BLOOD CULTURES AND CONSULT DR. MONTOYA. CALLED TO NOTIFY DR MONTOYA OF CONSULT AND CONDITION. WILL CONT TO MONITOR.
--- NOTE | 2019-05-21 20:21 | NUR ---
DR MONTOYA CALLED AND ORDERED ONE TIME DOSE OF VANCOMYCIN. WILL CONT TO MONITOR.
[2019-05-21] MEDS: MORPHINE SULFATE INJ 4 MG/ML INJ 1ML IV PRN ×2 (20:29→23:19)
[2019-05-21] MEDS ORDERED: VANCOMYCIN 1GM/NS 250 ML 250 ML IV ONE (20:30)
[2019-05-22] VITALS (9 sets, daily range): BP systolic 115–144; BP diastolic 66–99
[2019-05-22] MEDS: PIPER-TAZ 3.375 GM / NS 50ML IV SCH ×2 (00:19→10:08)
[2019-05-22] MEDS: METRONIDAZOLE 500MG/NS 100ML 100 ML IV SCH ×4 (02:26→21:17)
[2019-05-22] MEDS: SODIUM CHLORIDE 0.9% 250ML IRRIG IR SCH ×6 (02:26→23:51)
[2019-05-22] MEDS: DEXTROSE 5%/LACTATED RINGERS 1,000 ML IV SCH ×3 (02:26→20:56)
[2019-05-22 05:50] LABS: BASOPHILS # (AUTO) 0.2 (0.0-0.1); BASOPHILS % 0.9 % (0.0-1.0); EOSINOPHILS % 0.1 % (0.0-6.0); HEMATOCRIT 38.4 % (38.2-49.6); HEMOGLOBIN 12.5 g/dL (14.0-18.0); LYMPHOCYTES # (AUTO) 1.2 (1.0-3.2); LYMPHOCYTES % 6.8 % (18.0-39.1); MEAN CORPUSCULAR HEMOGLOBIN 30.9 pg (28-32); MEAN CORPUSCULAR HGB CONC 32.6 g/dL (31-35); MONOCYTES # (AUTO) 1.4 (0.2-0.8); MONOCYTES % 7.9 % (4.4-11.3); NEUTROPHILS # (AUTO) 14.4 (2.1-6.9); NEUTROPHILS % 79.9 % (38.7-80.0); PLATELET COUNT 429 x10e3/uL (140-360); RED BLOOD COUNT 4.04 x10e6/uL (4.3-5.7); RED CELL DISTRIBUTION WIDTH 15.9 % (11.7-14.4)
[2019-05-22 06:08] LABS: ALANINE AMINOTRANSFERASE 11 IU/L (0-55); ALBUMIN 1.6 g/dL (3.5-5.0); ALBUMIN/GLOBULIN RATIO 0.5 (0.8-2.0); ALKALINE PHOSPHATASE 93 IU/L (40-150); ANION GAP 10.8 mmol/L (8-16); BLOOD UREA NITROGEN 11 mg/dL (7-26); BUN/CREATININE RATIO 16 (6-25); CALCIUM 7.5 mg/dL (8.4-10.2); CARBON DIOXIDE 23 mmol/L (22-29); CHLORIDE 108 mmol/L (98-107); EST GLOMERULAR FILTRATION RATE > 60 ML/MIN (60-); GLUCOSE 244 mg/dL (74-118); MAGNESIUM 1.4 MG/DL (1.3-2.1); POTASSIUM 3.8 mmol/L (3.5-5.1); SODIUM 138 mmol/L (136-145)
[2019-05-22] MEDS: MORPHINE SULFATE INJ 4 MG/ML INJ 1ML IV PRN ×3 (06:24→22:14)
--- NOTE | 2019-05-22 07:05 | NUR ---
recieved report, walking rounds done, pt resting in bed, ng tube to low int suction, pt has nasal cannula in place, iv patent and receiving bolus of fluids to left forearm, chadwick cath in place
[2019-05-22] MEDS ORDERED: LACTATED RINGER'S 1,000 ML IV NR (07:10)
[2019-05-22 07:29] LABS: HYPOCHROMASIA SLIGHT; LYMPHOCYTES % (MANUAL) 6 % (19-48); MONOCYTES % (MANUAL) 6 % (3.4-9.0); NEUTROPHILS % (MANUAL) 88 % (40-74); PLATELET ESTIMATE SLIGHTLY INCREASED; PLATELET MORPHOLOGY COMMENT NORMAL; POLYCHROMASIA FEW; RBC MORPHOLOGY COMMENT NORMAL
--- NOTE | 2019-05-22 08:15 | NUR ---
pt was bathed and linens changed, pt has visible rash to torso and upper extremities, temp 99.9, oral care provided, hair was washed, cleaned and combed, no visible wounds noted on sacrum, pt has colostomy bag in place and surgical wound open and packed with kerlix and covered with tape
[2019-05-22] MEDS: FAMOTIDINE 20 MG/2 ML VIAL IV SCH ×2 (08:51→21:17)
--- NOTE | 2019-05-22 09:12 | NUR ---
DR BURNS HERE TO MAKE ROUNDS
[2019-05-22] MEDS ORDERED: ACETAMINOPHEN 1000 MG/100 ML IV PRN (11:45)
--- NOTE | 2019-05-22 15:45 | NUR ---
pt sitting up in bed, ng to low int suction, flushed with 30 cc of ns, vs stable, assisted pt with repositioning, pt states he was going to try to call his , call light with in reach, side rails x2
[2019-05-22] MEDS: METOPROLOL TARTRATE INJ 1 MG/ML VIAL IV PRN ×2 (15:56→19:39)
[2019-05-22] MEDS ORDERED: VANCOMYCIN 1GM/NS 250 ML 250 ML IV SCH (16:00)
--- NOTE | 2019-05-22 16:53 | Consultation ---
DATE OF CONSULTATION: REASON FOR CONSULTATION: Intra-abdominal abscess, recommendation for antibiotic. HISTORY OF PRESENT ILLNESS: This patient who is a 73-year-old white male, who comes into the emergency room with abdominal pain, right lower quadrant. He has been having this pain for a few days. He was recently in [place]. He had diverticulitis. The patient comes in with severe abdominal pain. A CAT scan done in the emergency room showed an abscess in right lower quadrant with high-grade partial small-bowel obstruction, large stool and air. He was taken to the OR by Dr. Su, underwent colostomy and drainage of an abscess. The patient is in the IMCU. He is having perforated colon with pelvic abscess. I was asked to see him. The patient who does have history of hypothyroidism, hypertension. PAST SURGICAL HISTORY: As above. ALLERGIES: NKA. SOCIAL HISTORY: There is no smoking, drug abuse, or alcohol abuse. FAMILY HISTORY: Otherwise noncontributory. REVIEW OF SYSTEMS: GENERAL: He is just in pain. He is just not feeling well. HEENT: There is no headache, visual changes or hearing changes. GI: There is no nausea, no vomiting, diarrhea. LABORATORY DATA: Reviewed when he first came, white count 11, went up to 18, hemoglobin 12.5 sodium 138, potassium 3.8 with creatinine of 0.7, otherwise liver enzyme within normal limits. The patient was started on he is currently on morphine, Zosyn and metronidazole. PHYSICAL EXAMINATION: VITAL SIGNS: He did have a temperature of 103.1. HEENT: He is not icteric. NECK: Supple. CHEST: Clear. HEART: S1-S2. No murmur. ABDOMEN: Soft. He had a colostomy, the wound looks really good. IMPRESSION: Intra-abdominal abscess, status post drainage. Currently, there is no cultures done from the wound. He is currently on Zosyn and Flagyl. I would recommend to change him to vanc, cefepime and Flagyl. We will wait for the blood cultures. Reassess clinically and check CBC, Chem panel. We will follow. MD ROSE Turner/TREMAINE /[id number]
[2019-05-22] MEDS: CEFEPIME 2 GM/NS 0.9% 100 ML 100 ML IV SCH (17:35)
--- NOTE | 2019-05-22 18:02 | NUR ---
PT RESTING QUIETLY IN BED, VS STABLE,
--- NOTE | 2019-05-22 18:14 | NUR ---
SPOKE WITH DR BURNS ABOUT 200ML OF URINE OUTPUT, NO NEW ORDERS GIVEN, LONG PT IS NOT RETAINING HE IS OK
--- NOTE | 2019-05-22 18:45 | NUR ---
Report received. Assumed care. Assessment done. See interventions. IV D5LR @ 125ml/hr. NGT left nare with bile colored drng. Colostomy with small amt reddish brown drng. .
--- NOTE | 2019-05-22 19:37 | NUR ---
HR 131. Metoprolol IV given.
[2019-05-22] MEDS: ONDANSETRON HCL INJ 2MG/ML 2ML 2 MG/ML VIAL IV PRN (22:14)
[2019-05-23] VITALS (10 sets, daily range): BP systolic 99–159; BP diastolic 73–117
[2019-05-23] MEDS: METOPROLOL TARTRATE INJ 1 MG/ML VIAL IV PRN ×3 (00:16→21:50)
[2019-05-23] MEDS: CEFEPIME 2 GM/NS 0.9% 100 ML 100 ML IV SCH ×3 (01:53→18:00)
[2019-05-23] MEDS: SODIUM CHLORIDE 0.9% 250ML IRRIG IR SCH ×4 (03:41→16:14)
[2019-05-23] MEDS: METRONIDAZOLE 500MG/NS 100ML 100 ML IV SCH ×4 (03:43→23:32)
[2019-05-23] MEDS: MORPHINE SULFATE INJ 4 MG/ML INJ 1ML IV PRN ×2 (03:46→10:22)
[2019-05-23] MEDS: DEXTROSE 5%/LACTATED RINGERS 1,000 ML IV SCH ×3 (03:58→21:29)
[2019-05-23 05:14] LABS: BASOPHILS # (AUTO) 0.2 (0.0-0.1); EOSINOPHILS # (AUTO) 0.1 (0.0-0.4); HEMATOCRIT 33.2 % (38.2-49.6); HEMOGLOBIN 10.5 g/dL (14.0-18.0); LYMPHOCYTES # (AUTO) 1.6 (1.0-3.2); MEAN CORPUSCULAR HEMOGLOBIN 31.4 pg (28-32); MEAN CORPUSCULAR HGB CONC 31.6 g/dL (31-35); MEAN CORPUSCULAR VOLUME 99.4 fL (81-99); MONOCYTES # (AUTO) 1.4 (0.2-0.8); NEUTROPHILS # (AUTO) 18.8 (2.1-6.9); PLATELET COUNT 381 x10e3/uL (140-360); RED BLOOD COUNT 3.34 x10e6/uL (4.3-5.7); RED CELL DISTRIBUTION WIDTH 16.1 % (11.7-14.4)
[2019-05-23 05:50] LABS: ANION GAP 11.5 mmol/L (8-16); BLOOD UREA NITROGEN 13 mg/dL (7-26); BUN/CREATININE RATIO 19 (6-25); CALCIUM 7.4 mg/dL (8.4-10.2); CARBON DIOXIDE 23 mmol/L (22-29); CHLORIDE 111 mmol/L (98-107); CREATININE, SERUM 0.67 mg/dL (0.72-1.25); EST GLOMERULAR FILTRATION RATE > 60 ML/MIN (60-); GLUCOSE 136 mg/dL (74-118); POTASSIUM 3.5 mmol/L (3.5-5.1); SODIUM 142 mmol/L (136-145)
[2019-05-23] MEDS: FAMOTIDINE 20 MG/2 ML VIAL IV SCH ×2 (08:19→21:49)
[2019-05-23 08:32] LABS: ANISOCYTOSIS SLIGHT; LYMPHOCYTES % (MANUAL) 4 % (19-48); MONOCYTES % (MANUAL) 3 % (3.4-9.0); NEUTROPHILS % (MANUAL) 93 % (40-74); PLATELET ESTIMATE SLIGHTLY INCREASED; PLATELET MORPHOLOGY COMMENT NORMAL
[2019-05-23 08:33] LABS: RBC MORPHOLOGY COMMENT NORMAL
[2019-05-23] MEDS ORDERED: VANCOMYCIN 1GM/NS 250 ML 250 ML IV SCH (14:15)
--- NOTE | 2019-05-23 15:56 | Progress Note ---
DATE: SUBJECTIVE: Mr. Randolph remains in the hospital. He remains weak. No new complaints. He has no fever. T-max has been 100.5. OBJECTIVE: HEENT: He is not icteric. NECK: Supple. CHEST: Few crackles. COR: S1 and S2. No S3, S4, or murmurs. ABDOMEN: Soft. LABORATORY DATA: Unfortunately, there are no cultures from the surgery. His white count today jumped up to 23, hemoglobin of 10. His sodium 142, potassium 3.5, creatinine 0.67. The patient, who is currently on cefepime and metronidazole. We will add vancomycin and Diflucan. Recheck CBC. Recheck chem panel. We will follow vancomycin trough. We will follow. MD ROSE Turner/TREMAINE /[id number]
[2019-05-23] MEDS: FLUCONAZOLE 200 MG/100 ML 100 ML IV SCH (16:10)
[2019-05-23] MEDS: LINEZOLID 600 MG/D5W 300ML 300 ML IV SCH (17:23)
[2019-05-23] MEDS: NYSTATIN/TRIAMCINOLONE 15 GM CR TOP SCH (17:23)
--- NOTE | 2019-05-23 17:43 | NUR ---
Patient arrived to room 285 from [facility], he is in stable condition. Patient is confused, bed alarm on.
--- NOTE | 2019-05-23 18:16 | NUR ---
REPORT GIVEN TO FLOOR NURSE, PT PLACED ON TELE BOX AND MOVED TO FLOOR ON BED W/O INCIDENT
--- NOTE | 2019-05-23 18:40 | NUR ---
Paged Dr. Lake to notify him that patient pulled both IV lines out, pulled NG tube out. No answer, LVM.
--- NOTE | 2019-05-23 18:45 | NUR ---
Paged Dr. Su to notify him that patient pulled NG tube out. Waiting removable prosthodontist back.
--- NOTE | 2019-05-23 18:48 | NUR ---
Notified Dr. Su that patient pulled NG tube out and refusing to let staff put it back in, per MD leave NG tube out but keep patient NPO.
--- NOTE | 2019-05-23 18:50 | NUR ---
Patient refusing to get IV lines started, this nurse and charge nurse in room. Patient keeps refusing to get IV line. Called Dr. Lake, waiting for call back.
--- NOTE | 2019-05-23 19:08 | NUR ---
Bedside shift report given to oncoming nurse. Patient is resting in bed. No acute distress noted. Call light within reach. Bed in the lowest position. Bed alarm on.
[2019-05-23] MEDS ORDERED: ZIPRASIDONE 20 MG VIAL IM PRN (20:00)
[2019-05-23] MEDS ORDERED: ACETAMINOPHEN 1000 MG/100 ML IV STA (21:52)
[2019-05-24] VITALS (9 sets, daily range): BP systolic 121–158; BP diastolic 80–98
[2019-05-24] MEDS: CEFEPIME 2 GM/NS 0.9% 100 ML 100 ML IV SCH ×3 (02:00→21:30)
[2019-05-24] MEDS: METRONIDAZOLE 500MG/NS 100ML 100 ML IV SCH ×4 (04:34→18:49)
[2019-05-24] MEDS: LINEZOLID 600 MG/D5W 300ML 300 ML IV SCH ×2 (06:03→17:30)
[2019-05-24] MEDS: MORPHINE SULFATE INJ 4 MG/ML INJ 1ML IV PRN ×2 (06:04→17:58)
[2019-05-24 06:28] LABS: EOSINOPHILS # (AUTO) 0.3 (0.0-0.4); HEMATOCRIT 29.1 % (38.2-49.6); HEMOGLOBIN 9.2 g/dL (14.0-18.0); LYMPHOCYTES # (AUTO) 0.9 (1.0-3.2); MEAN CORPUSCULAR HGB CONC 31.6 g/dL (31-35); MONOCYTES # (AUTO) 0.5 (0.2-0.8); PLATELET COUNT 331 x10e3/uL (140-360); RED BLOOD COUNT 2.97 x10e6/uL (4.3-5.7); RED CELL DISTRIBUTION WIDTH 15.8 % (11.7-14.4)
[2019-05-24 06:56] LABS: BLOOD UREA NITROGEN 13 mg/dL (7-26); BUN/CREATININE RATIO 21 (6-25); CALCIUM 7.2 mg/dL (8.4-10.2); CARBON DIOXIDE 27 mmol/L (22-29); CHLORIDE 112 mmol/L (98-107); CREATININE, SERUM 0.63 mg/dL (0.72-1.25); EST GLOMERULAR FILTRATION RATE > 60 ML/MIN (60-); GLUCOSE 94 mg/dL (74-118); SODIUM 145 mmol/L (136-145)
[2019-05-24 08:26] LABS: EOSINOPHILS % (MANUAL) 2 % (0-7); LYMPHOCYTES % (MANUAL) 6 % (19-48); MONOCYTES % (MANUAL) 3 % (3.4-9.0); MYELOCYTES % (MANUAL) 1 % (0-0); NEUTROPHILS % (MANUAL) 88 % (40-74)
[2019-05-24 08:28] LABS: ANISOCYTOSIS SLIGHT; PLATELET ESTIMATE ADEQUATE; PLATELET MORPHOLOGY COMMENT NORMAL; RBC MORPHOLOGY COMMENT NORMAL
[2019-05-24] MEDS: FAMOTIDINE 20 MG/2 ML VIAL IV SCH ×2 (09:29→21:30)
[2019-05-24] MEDS: NYSTATIN/TRIAMCINOLONE 15 GM CR TOP SCH ×2 (10:00→13:11)
[2019-05-24] MEDS: DEXTROSE 5%/LACTATED RINGERS 1,000 ML IV SCH ×2 (11:04→17:52)
[2019-05-24] MEDS ORDERED: ACETAMINOPHEN 1000 MG/100 ML IV PRN (11:30)
[2019-05-24] MEDS: FLUCONAZOLE 200 MG/100 ML 100 ML IV SCH (15:08)
--- NOTE | 2019-05-24 19:05 | NUR ---
Patient visited in room during nursing rounds. Patient alert and oriented x0-1. Pt tend to pull out medical devices (e.g. peripher IVs, telemetry leads, etc.) thus patient has 1:1 sitter care at bedside. Quintanilla catheter in place for urinary retention. S/P Exploratory Laparotomy and sigmoid colon resection on 05/21/19. Colostomy noted on LLQ abdomen draining liquid brown stool. On IVF (D5LR at 125ml/hr). Bed alarm active.
[2019-05-25] VITALS (8 sets, daily range): BP systolic 142–161; BP diastolic 79–98
[2019-05-25] MEDS: METRONIDAZOLE 500MG/NS 100ML 100 ML IV SCH ×5 (00:20→23:30)
--- NOTE | 2019-05-25 01:02 | NUR ---
Nurse (Johny) notified by WATERMELON HARVESTING SUPERVISOR ([facility]) that patient has been refusing to be turned and is laying on his back at this time. Pt plans to be given a bath early this morning and will be turned by then.
[2019-05-25] MEDS: CEFEPIME 2 GM/NS 0.9% 100 ML 100 ML IV SCH ×3 (05:30→21:00)
[2019-05-25 06:05] LABS: EOSINOPHILS # (AUTO) 0.3 (0.0-0.4); HEMATOCRIT 28.9 % (38.2-49.6); HEMOGLOBIN 9.6 g/dL (14.0-18.0); LYMPHOCYTES # (AUTO) 0.9 (1.0-3.2); MEAN CORPUSCULAR HGB CONC 33.2 g/dL (31-35); MEAN CORPUSCULAR VOLUME 96.3 fL (81-99); MONOCYTES # (AUTO) 0.5 (0.2-0.8); NEUTROPHILS # (AUTO) 7.4 (2.1-6.9); PLATELET COUNT 353 x10e3/uL (140-360); RED CELL DISTRIBUTION WIDTH 15.5 % (11.7-14.4)
[2019-05-25 06:14] LABS: BLOOD UREA NITROGEN 10 mg/dL (7-26); BUN/CREATININE RATIO 16 (6-25); CALCIUM 7.3 mg/dL (8.4-10.2); CARBON DIOXIDE 26 mmol/L (22-29); CHLORIDE 112 mmol/L (98-107); CREATININE, SERUM 0.62 mg/dL (0.72-1.25); EST GLOMERULAR FILTRATION RATE > 60 ML/MIN (60-); GLUCOSE 113 mg/dL (74-118); SODIUM 143 mmol/L (136-145)
[2019-05-25] MEDS: DEXTROSE 5%/LACTATED RINGERS 1,000 ML IV SCH (06:45)
[2019-05-25] MEDS: LINEZOLID 600 MG/D5W 300ML 300 ML IV SCH ×2 (06:45→17:16)
[2019-05-25] MEDS: FAMOTIDINE 20 MG/2 ML VIAL IV SCH ×2 (08:21→21:00)
[2019-05-25] MEDS: MORPHINE SULFATE INJ 4 MG/ML INJ 1ML IV PRN ×2 (08:21→13:59)
[2019-05-25] MEDS: NYSTATIN/TRIAMCINOLONE 15 GM CR TOP SCH ×2 (10:14→17:11)
[2019-05-25] MEDS: SOD CHL 0.45%/POT CHL 20MEQ 1,000 ML IV SCH (10:23)
--- NOTE | 2019-05-25 13:13 | NUR ---
WOUND CARE CONSULT FOR 73 YO MALE HX OF APPENDICITIS, ABSCESS ,DIVERTICULITIS HARRISON 14 ON PUP STATUS AND INTERVENTIONS AND VISCO MATTRESS LABS: WBC-9.34 HGB_9.6 GLUCOSE-113 SKIN ASSESSMENT COMPLETE PATIENT PRESENTS WITH OPEN SURGICAL INCISION PINK AND GLANDULAR BASE OF WOUND APPEARS THIN MINIMAL AMOUNT OF SEROSANGUINEOUS DRAINAGE NOTED MEASURES 15.0 CM X4.5 CM X 2.0 CM IN THE FUTURE PATIENT MAY BENEFIT FROM NEGATIVE PRESSURE THERAPY TO ABDOMINAL WOUND AT THIS TIME MY PROFESSIONAL OPINION IS THAT DUE TO THIN WOUND BASE COMPRESSION MAY RESULT IN FISTULA FORMATION IF THIN LINING IS DISRUPTED ONCE MORE GRANULATION IS PRESENT MAY BE A BENEFICIAL MODALITY PATIENT TEACHING FOR LLQ COLOSTOMY ATTEMPTED PATIENT COMPREHENSION POOR AND WILL BE DEPENDENT ON OTHERS FOR COLOSTOMY CARE AND MAINTENANCE RECOMMENDATIONS: NURSING TO CONTINUE TO MAINTAIN MODERATE PUP STATUS AND INTERVENTIONS AND VISCO _ MATTRESS NURSING TO CONTINUE TO ASSIST PATIENT OUT OF BED FOR MEALS AND MUCH TOLERATED NURSING TO CONTINUE TO ASSIST PATIENT NEEDED WITH MEALS AND NUTRITIONAL SUPPLEMENTS TO ENSURE PROPER REQUIREMENTS FOR HEALING NURSING TO CONTINUE TO OFFLOAD FEET AND HEELS NEEDED WITH PILLOW SUSPENSION WHEN IN BED NURSING TO CLEAN ABDOMINAL WOUND WITH NORMAL SALINE DAILY AND APPLY BETADINE/SALINE MOIST FELISHA COVER WITH 4X4S ,ABD PAD AND SECURE WITH TAPE Addendum: 05/25/19 at 1328 by Grey Curiel RN Amended: Links added.
--- NOTE | 2019-05-25 13:45 | NUR ---
CALL TO PT'S ROOM. ARNELTER STATES HE IS CONFUSED. CALL TO PT'S , ALEK MERRITT @ [phone]. DISCUSSED LTACH. PROVIDED CHOICE. CHOSE TO GO WITH JOSE. CHOICE LETTER WAS SIGNED AND COPY TO THE CHART. CALL TO SIMIN HERNANDEZ/METER SUPERVISOR FAXED CLINICALS TO [phone].
[2019-05-25] MEDS: FLUCONAZOLE 200 MG/100 ML 100 ML IV SCH (16:25)
--- NOTE | 2019-05-25 19:05 | NUR ---
Patient visited in room during nursing rounds. Patient alert and oriented x0-1. Pt resting comfortably and has intermittent confusion but so far has not displayed any aggressive behavior or attempt to pull out medical devices. Quintanilla catheter in place for urinary retention. S/P Exploratory Laparotomy and sigmoid colon resection on 05/21/19. Colostomy noted on LLQ abdomen draining liquid brown stool and passing gas. On IVF (D5LR at 125ml/hr). Bed alarm active. Addendum: 05/26/19 at 0230 by Johny Rodriguez RN Correct IVF (1/2NS with 20meqKCL at 100ml/hr)
[2019-05-26] VITALS (8 sets, daily range): BP systolic 133–161; BP diastolic 69–96
[2019-05-26] MEDS: SOD CHL 0.45%/POT CHL 20MEQ 1,000 ML IV SCH (03:55)
[2019-05-26] MEDS: CEFEPIME 2 GM/NS 0.9% 100 ML 100 ML IV SCH ×3 (05:00→23:28)
[2019-05-26] MEDS: METRONIDAZOLE 500MG/NS 100ML 100 ML IV SCH ×3 (05:30→21:03)
[2019-05-26 06:16] LABS: ANION GAP 7.2 mmol/L (8-16); BLOOD UREA NITROGEN 12 mg/dL (7-26); BUN/CREATININE RATIO 19 (6-25); CARBON DIOXIDE 25 mmol/L (22-29); CHLORIDE 112 mmol/L (98-107); CREATININE, SERUM 0.62 mg/dL (0.72-1.25); EST GLOMERULAR FILTRATION RATE > 60 ML/MIN (60-); GLUCOSE 77 mg/dL (74-118); POTASSIUM 3.2 mmol/L (3.5-5.1); SODIUM 141 mmol/L (136-145)
[2019-05-26 06:19] LABS: CALCIUM 6.9 mg/dL (8.4-10.2)
[2019-05-26 06:36] LABS: MAGNESIUM 1.4 MG/DL (1.3-2.1); PHOSPHORUS 1.5 MG/DL (2.3-4.7)
--- NOTE | 2019-05-26 07:09 | NUR ---
bedside shift report received from PM nurse. pt resting in bed, all safety measures in place. no signs of distress. will continue to monitor.
[2019-05-26] MEDS: LINEZOLID 600 MG/D5W 300ML 300 ML IV SCH ×2 (07:20→22:24)
--- NOTE | 2019-05-26 07:20 | NUR ---
called Dr. Lake and informed him of pt's critical Calcium level at 6.9 this morning. no new orders given at this time. will continue to monitor.
--- NOTE | 2019-05-26 10:48 | NUR ---
pt disoriented, pulled out IV. pt awake, alert, can answer questions regarding person and place, but disoriented to time and situation. requesting sitter.
[2019-05-26] MEDS: FAMOTIDINE 20 MG/2 ML VIAL IV SCH ×2 (13:36→21:50)
[2019-05-26] MEDS: NYSTATIN/TRIAMCINOLONE 15 GM CR TOP SCH ×2 (13:36→20:09)
[2019-05-26] MEDS ORDERED: MAGNESIUM SULFATE 2GM/50ML IV ONE (15:15)
[2019-05-26] MEDS ORDERED: MAGNESIUM SULFATE 2GM/50ML 50 ML IV ONE (15:15)
--- NOTE | 2019-05-26 16:50 | NUR ---
Nutrition Intervention Note RD Recommendation(s) for Physician: -Advance to GI soft diet when medically appropriate -Ensure Enlive BID for added nutrition Plan of Care: RD following, monitoring for tolerance and adequacy Nutrition reason for involvement: Length of stay RD Assessment: (05/26/19) Pt is a 73 year old male admitted with appendicitis with abscess, diverticulitis, and SBO. On 05/20, pt had a surgical procedure which involved exploratory laparotomy, partial colon resection, colostomy, and drainage of intra-abdominal abcess. Pt was on NPO/clear liquid diet from 05/19-05/24. Attempted to speak to pt, but he was lethargic at time of visit. Sitter at bedside stated that pt did not consume much of his liquids. No previous weight in chart. Recommend Ensure Enlive BID for added nutrition. No N/V or chewing/swallowing issues noted. Principal Problems/Diagnoses: appendicitis with abscess, diverticulitis, and SBO PMH: HTN, diverticulitis I/O: 2024/1199 GI: soft, non-tender abdomen, last recorded stool output 05/23 Skin: abdominal surgical incision Labs: (05/25) K 3.2, Ca 6.9 Meds: antibiotics, metoprolol, zofran Ht: 67 inches Wt: 157 lbs BMI: 24.6 kg/m2 IBW: 148 lbs Malnutrition Evaluation (05/26/19) Unable to fully assess. Will re-evaluate at follow-up as appropriate. Energy intake: <50% of estimated energy requirements for >5 days Weight loss: Unable to assess Fat loss: unable to evaluate Muscle loss: unable to evaluate Supporting Evidence: Fluid accumulation: unable to evaluate Functional Status: unable to evaluate Nutrition Prescription (Diet Order): full liquids Estimated Nutritional Needs: 5871-4001 calories/day (25-35 kcal/kg CBW) 71-107 g protein/day (1-1.5 g pro/kg CBW) Diet Adequacy: Not meeting calorie needs, Not meeting protein needs Tolerance: Tolerance pending Diet Education Needs Assessment: Diet education not indicated, patient on temporary/transition diet. Nutrition Care Level: moderate Nutrition Diagnosis: Inadequate energy intake related to decreased ability to consume sufficient energy secondary to SBO as evidenced by pt meeting <50% of estimated nutrition needs for > 5 days. Goal: Patient will meet 75-100% of estimated needs by follow up Progress: N/A Interventions: -fiber-modified diet, Commercial beverage Monitoring/Evaluation: Total energy intake, Total protein intake, Modified diet, Liquid supplement, Weight change Signed: Sandra Davis RD, LD
--- NOTE | 2019-05-26 19:23 | NUR ---
received report from CARMELINA Cross; Pt. A & 0 x 2; Will continue to monitor.
[2019-05-26] MEDS: FLUCONAZOLE 200 MG/100 ML 100 ML IV SCH (20:04)
[2019-05-26] MEDS: POTASSIUM PHOSPHATE 20 MM in SODIUM CHLORIDE 0.9% 250ML 250 ML IV SCH (21:03)
[2019-05-27] VITALS (7 sets, daily range): BP systolic 142–154; BP diastolic 78–94
[2019-05-27] MEDS: METRONIDAZOLE 500MG/NS 100ML 100 ML IV SCH ×4 (00:57→17:59)
[2019-05-27] MEDS: MORPHINE SULFATE INJ 4 MG/ML INJ 1ML IV PRN (01:54)
[2019-05-27] MEDS: ONDANSETRON HCL INJ 2MG/ML 2ML 2 MG/ML VIAL IV PRN (01:54)
--- NOTE | 2019-05-27 02:06 | NUR ---
Abdominal blisters cleaned with normal saline and covered with sterile 4x4 gauze and abdominal pad.
[2019-05-27] MEDS: SOD CHL 0.45%/POT CHL 20MEQ 1,000 ML IV SCH ×2 (06:38→11:45)
[2019-05-27] MEDS: CEFEPIME 2 GM/NS 0.9% 100 ML 100 ML IV SCH (06:38)
[2019-05-27 06:57] LABS: ANION GAP 8.5 mmol/L (8-16); BLOOD UREA NITROGEN 12 mg/dL (7-26); BUN/CREATININE RATIO 19 (6-25); CARBON DIOXIDE 24 mmol/L (22-29); CHLORIDE 111 mmol/L (98-107); CREATININE, SERUM 0.62 mg/dL (0.72-1.25); EST GLOMERULAR FILTRATION RATE > 60 ML/MIN (60-); GLUCOSE 71 mg/dL (74-118); POTASSIUM 3.5 mmol/L (3.5-5.1); SODIUM 140 mmol/L (136-145)
--- NOTE | 2019-05-27 07:05 | NUR ---
Received bedside shift report. Patient awake at this time, nasal canula in place, no visible signs of distress noted. Sitter at bedside. Call light within reach.
[2019-05-27 07:11] LABS: MAGNESIUM 1.8 MG/DL (1.3-2.1); PHOSPHORUS 2.1 MG/DL (2.3-4.7)
[2019-05-27 07:12] LABS: CALCIUM 6.8 mg/dL (8.4-10.2)
[2019-05-27] MEDS ORDERED: KETOROLAC TROMETHAMINE 30 MG/ML VIAL IV PRN (07:30)
[2019-05-27] MEDS ORDERED: HYDROCODONE/APAP 5MG-325MG TAB PO PRN (07:30)
[2019-05-27] MEDS: LINEZOLID 600 MG/D5W 300ML 300 ML IV SCH ×2 (08:16→17:59)
[2019-05-27] MEDS ORDERED: FUROSEMIDE INJ 10 MG/ML 2 ML VIAL IV ONE (09:15)
[2019-05-27] MEDS ORDERED: MAGNESIUM SULFATE 2GM/50ML IV ONE (09:30)
[2019-05-27] MEDS: NYSTATIN/TRIAMCINOLONE 15 GM CR TOP SCH ×2 (09:32→16:35)
[2019-05-27] MEDS: FAMOTIDINE 20 MG/2 ML VIAL IV SCH (09:32)
[2019-05-27] MEDS ORDERED: LEVOTHYROXINE SODIUM 100 MCG/VIAL IV ONE (09:45)
[2019-05-27] MEDS ORDERED: POTASSIUM PHOSPHATE 20 MM in SODIUM CHLORIDE 0.9% 250ML 250 ML IV SCH (10:00)
--- NOTE | 2019-05-27 10:18 | NUR ---
Received MOT from Nagi Bauer with [employer]. [address] [id number] Call report to [phone] Admin: Keyur Curiel, SUPERVISOR COATING MOT completed and placed with pt's packet at nurse's station. CARMELINA Mcclellan and CARMELINA Herreraanimal care supervisor was informed of MOT.
[2019-05-27] MEDS ORDERED: MAGNESIUM SULFATE 2GM/50ML 50 ML IV ONE (10:30)
--- NOTE | 2019-05-27 10:58 | Discharge Summary ---
PRIMARY CARE PHYSICIAN: Dr. Jian Rodríguez. CONSULTANTS: 1. Dr. Geoff Singh. 2. Dr. Timi Valenzuela. 3. Dr. Geoff Su. FINAL DIAGNOSES: 1. Perforated colon with pelvic abscess and acute peritonitis with status post exploratory laparotomy and sigmoid colon resection with end colostomy and drainage of pelvic abscess. Procedure was done by Dr. Geoff Su under general endotracheal anesthesia. Procedure was done on May 21, 2019. 2. Resolved leukocytosis. 3. Surgical abdominal wound, open wound. 4. Toxic encephalopathy, improving but persistent. 5. Medical severe debility. 6. Local dermatitis. 7. Sigmoid diverticulitis with perforation. SUMMARY: The patient condition discussed with spouse, Mrs. Brennon Randolph. Discussed with Mrs. Randolph regarding her spouse. Overall status improvement, but with persistent confusion from his severe illness, but overall that he is making progress. The patient is a 73-year-old male, who was at [facility] for sigmoid diverticulitis. The patient at that time did not have any perforation on CT scan on review at their facility. The patient was there and apparently he did not do better per Mrs. Randolph, but the medical note indicated that the patient was improving and that he was on discharge planning. Continue with physical therapy. Mrs. Randolph disagreed and subsequently signed the patient out against medical advice and subsequently brought the patient here to the [facility] for further evaluation. On admission, the patient was very sick. He was septic, leukocytosis and CT scan showed that he has perforated sigmoid colon consistent with his condition with fever and his developing intraabdominal abscess with peritonitis. The patient on admission his WBC was 11.6 thousand which subsequently jumped up to 18,000 to 23,000 on May 22. That was after his surgery. The patient underwent surgery on May 20. Procedure was done by Dr. Geoff Su. His WBC now is 9.3. He is doing much better with respect to his overall labs. The patient's electrolytes, BUN and creatinine were 12 and 0.6 respectively. His sodium is 140, potassium 3.5. His magnesium and phosphate are been replaced. The patient's vital signs stable. He has remained afebrile. Imaging test on admission on May 19 as follows. He had a nonvisualization of the appendix. Loculated fluid collection in the right lower quadrant suggests of abscesses. Normal peritoneum. Perforated viscus was consider at that time. He had a high-grade partial small bowel obstruction in the upper abdomen in gastric dilatation and diffuse esophageal distention with fluid at that time. It was large to an air intake containing collecting a collection anterior to the rectum. Splenomegaly. Small pleural effusion. Circumferential mural thickening of the urinary bladder. Overall, his condition is improving. He has remained on antibiotics. His sepsis resolved and he is doing better overall. He is catching up with his physical therapy and along with wound care as well as his diet. He is not eating that much at this time, but he is progressing. The patient will be transferred to [facility] in [facility]. The patient is stable. He is progressing and he will be transferring today. Discussed with the patient's spouse. We will need to continue with treatment, physical therapy and wound care. The patient is otherwise stable. The patient was transferred today. Medication reconciliation is done, please review. He will resume his levothyroxine as well as receiving one dose of IV Synthroid today. Electrolyte is replaced also today will be done before his transferring. The patient is overall stable, transferred today and will continue with his treatment at [facility]. MD OLIVIA Crews/TREMAINE /[id number]
--- NOTE | 2019-05-27 12:30 | NUR ---
Wound care and dressing change done to midline abdominal wound and right lateral abdominal blisters. Cleansed with normal saline gauze and Betadine. Abdominal pad secured with paper tape. Tolerated dressing change/wound care fairly. Repositioned for comfort post care. Call light within reach.
[2019-05-27] MEDS: POTASSIUM PHOSPHATE 20 MM in SODIUM CHLORIDE 0.9% 250ML 250 ML IV SCH (12:36)
--- NOTE | 2019-05-27 13:00 | NUR ---
Patient's Brennon Randolph called for patient update. Status update given. Patient is resting at this time, remains appropriate and cooperative. Telephone consent to transfer with ambulance obtained and witnessed with Celia. Consent to transfer signed and placed in chart. Patient denies pain at this time. Brennon requests call back with estimated time of departure/arrival to [facility].
[2019-05-27] MEDS ORDERED: CEFEPIME 2 GM/NS 0.9% 100 ML 100 ML IV SCH (14:00)
[2019-05-27] MEDS: FLUCONAZOLE 200 MG/100 ML 100 ML IV SCH (16:34)
--- NOTE | 2019-05-27 18:20 | NUR ---
Called report to Bryn Beltran at [phone]. Spoke to CARMELINA Mijares. Patient status and updates given. 20G IV to right wrist and 22G IV to left forearm will remain in place for continued IV antibiotic treatment. Quintanilla to remain in place per MD order.
--- NOTE | 2019-05-27 18:35 | NUR ---
Called Brennon at [phone]. Patient status and update given. Contact information for Bryn Beltran provided. Patient will be going to room 235. Report given to CARMELINA Mijares.
--- NOTE | 2019-05-27 18:35 | Progress Note ---
DATE: SUBJECTIVE: Mr. Randolph is doing well. There are no new complaints. This patient who comes here with perforated colon abscess status post drain, had peritonitis. The patient was done by Dr. Su under general anesthesia. The patient was given IV antibiotic. He is currently doing well. REVIEW OF SYSTEMS: HEENT: Negative. PULMONARY: Negative. He is feeling better. CARDIAC: Negative PHYSICAL EXAMINATION: GENERAL: Currently alert, oriented, does not seem in acute distress. VITAL SIGNS: Stable, afebrile. HEENT: Not icteric. NECK: Supple. CHEST: Clear. HEART: S1, S2. No S3, S4, or murmur. ABDOMEN: Soft. LABORATORY DATA: His white count came down to 9.3, hemoglobin 9.6. MEDICATIONS: The patient is currently on cefepime and metronidazole. IMPRESSION: Intraabdominal abscess, going to [place], clinically better. Continue with PT. Continue OT. Continue with supportive care. To finish 14 days of antibiotic. MD ROSE Turner/MODL /[id number]
--- NOTE | 2019-05-27 19:00 | NUR ---
Bedside shift report given to night nurse. Patient resting at this time in stable condition, awaiting ambulance pickup to transfer to [facility]. Call light within reach.
--- NOTE | 2019-05-27 19:30 | NUR ---
Assessment done.v/s stable.aaox2.bed locked and in lowest position.phone and call light within reach.instructed to call for assistance as needed.
--- NOTE | 2019-05-27 20:35 | NUR ---
Tele d/c and returned to dept.transferred to [place] room #235 via ambulance in a stable condition.
== END 2019-05-27 20:43 | DRG 853 ==
LOC: ER 19:56 → ERHOLD 23:40 → MED/SURG 05-21 01:27 → IMCU 05-21 13:00 → MED/SURG3 05-23 17:43
PROVIDERS: ADMIT Internal Medicine; ATTEND Internal Medicine
PROC: 0D1N0Z4 Bypass Sigmoid Colon to Cutaneous, Open Approach (ICD-10-PCS; 2019-05-21)
PROC: 0DBN0ZZ Excision of Sigmoid Colon, Open Approach (ICD-10-PCS; principal; 2019-05-21 10:00)
DX: A41.9 Sepsis, unspecified organism (principal); K65.0 Generalized (acute) peritonitis; R65.21 Severe sepsis with septic shock; G92 Toxic encephalopathy; K65.1 Peritoneal abscess; K57.20 Diverticulitis of large intestine with perforation and abscess without bleeding; K56.52 Intestinal adhesions [bands] with complete obstruction; K56.7 Ileus, unspecified; N17.9 Acute kidney failure, unspecified; I10 Essential (primary) hypertension; Z82.49 Family history of ischemic heart disease and other diseases of the circulatory system; D64.9 Anemia, unspecified; L30.9 Dermatitis, unspecified; R33.9 Retention of urine, unspecified; E87.6 Hypokalemia
CPT/HCPCS: 36415; 51701; 71250; 74177; 80048; 80053; 81001; 82150; 83690; 83735; 84100; 85007; 85025; 85027; 87040; 88307; 96360; 96361; 97139; 99251; 99285; J1100; J1450; J1940; J2001; J2020; J2250; J2270; J2405; J2543; J3010; J3370; J3475; J7030; J7050; Q9967